=== PATIENT | female | born 1980 | race Caucasian/White ===

== ENCOUNTER → 2017-11-08 15:36 | Outpatient (CLI) | payer OTHER, MEDICAID, SELFPAY ==
--- NOTE | 2017-11-08 | DI.US.S_ITS ---
PROCEDURE: US PELVIC COMPLETE INDICATIONS: Vaginal bleeding TECHNIQUE: Real-time scanning was performed of the pelvic organs, with image documentation. Additional endovaginal scanning was necessary due to incomplete visualization of the adnexal and endometrial structures by transabdominal scanning. COMPARISON: [facility], , PELVIC COMPLETE, 01/05/2012, 8:38. FINDINGS: Transabdominal scanning: Limited scanning through the kidneys shows no hydronephrosis. No pathologic free abdominal or pelvic fluid. Endovaginal scanning: Uterus: Uterus is normal in size at 14.5 x 7.0 8.4 cm. The endometrium not well-visualized and there is a vascular mass present within the endometrial cavity measuring 3.6 x 2.0 x 3.9 cm. Ovaries: Right are not visualized. Left ovary is normal measuring 2.5 x 2.4 x 2.9 cm. IMPRESSION: Vascular endometrial mass present measuring up to 3.9 cm. Underlying neoplastic process cannot be excluded and gynecologic consultation is recommended. If indicated gynecologic protocol MRI could be performed. Dictated by: William BRAVO Interpreted: Jose Eduardo Mares MD on 11/08/2017 at 17:03 Approved by: Jai Alves M.D. on 11/09/2017 at 8:56
== END ==
PROVIDERS: PCP Family Medicine; Visit Provider Family Medicine
DX: N93.9 Abnormal uterine and vaginal bleeding, unspecified (principal); N85.8 Other specified noninflammatory disorders of uterus
CPT/HCPCS: 76830; 76856

== ENCOUNTER 2017-11-26 12:25 | Day surgery (SDC) | payer OTHER, MEDICAID, SELFPAY ==
[2017-11-23 17:06] VITALS: BMI 47.2
[2017-11-26] VITALS (10 sets, daily range): BP systolic 95–151; BP diastolic 49–88; PULSE 82–97; RESP 12–22; TEMP 36–36.6; O2SAT 93–97; BMI 57.1
--- NOTE | 2017-11-26 | PATH_ITS ---
[facility] Accession Number: [id number] . 01 Material submitted: . PART A: RESECTION OF ENDOMETRIAL MASS PART B: ENDOMETRIAL CURRETTAGE . 02 Diagnosis: A. Specimen Designated Endometrial Mass: Tissue fragments consistent with benign adenomyoma, negative for atypia. Fragments of minimally proliferative endometrium with stromal changes suggestive of exogenous hormone effect, negative for atypia. . B. Endometrial Curettings: Blood containing fragments of minimally proliferative endometrium with stromal changes suggestive of exogenous hormone effect and changes of stromal breakdown, negative for atypia. [facility]/12/01/2017 . 02 Electronically signed: . Dimitrios Srivastava MD, Pathologist NPI- [id number] . 01 Gross description: . A. Received in formalin, labeled 1-Resection of endometrial mass, are multiple fragments of palmer-bass rubbery tissue (4.6 x 2.7 x 0.5 cm in aggregate). Entirely submitted in cassettes A1 and A2. B. Received in formalin, labeled 2-Endometrial curettage, are multiple fragments of red-brown tissue admixed with coagulated blood (7.8 x 2.7 x 0.5 cm in aggregate). Entirely submitted in cassettes B1-B4. (JM:[id number]) . /[facility] . 02 Pathologist provided ICD-10: N80.0 . 02 CPT . 742413, [id number] Performed at: 01 [facility] [address], [place], [place] [id number] MD Anil Cooney MD Phone: [phone] Performed at: 02 [facility] [place] [address] [place], [place] [id number] MD Lee Meraz MD Phone: [phone]
[2017-11-26] MEDS: LACTATED RINGERS 1,000 ML 42 ML IV (13:05)
--- NOTE | 2017-11-26 13:19 | PM.PREOP ---
Pre-operative Note Interval Note Pre-op Check: History & Physical Reviewed by Physician and Exam Performed
--- NOTE | 2017-11-26 14:01 | SUR.OPER ---
Lithotomy on padded OR bed, head on pillow, arms secured on padded arm boards at <90 degrees abduction. Legs secured in padded yellow fins stirrups. belt secured at waist. wedge pillow under upper body.
--- NOTE | 2017-11-26 14:27 | PM.OP.1 ---
Operative Date/Time/Diagnoses - Date of procedure: 11/26/17 Time of procedure: 14:27 Pre-op diagnosis: Menorrhagia intracavitary mass on ultrasound Post-op diagnosis: same Procedure & Clinicians Procedure: Hysteroscopy with resection of intracavitary mass Same procedure as scheduled: Yes Indications: Menorrhagia with intracavitary mass on ultrasound Surgeon: Sherice Godinez Click Yes if Unassisted: Yes Anesthesia Type: General Operative Notes Findings: Vascular mass on the posterior wall of the uterus Closure Type: not applicable Specimen(s): other (Resection of mass and endometrial curettage) Estimated Blood Loss (mL): 20 Procedure in detail: The patient was brought to the operating room where she underwent general anesthesia. She was placed in low stirrups She was prepped and draped in usual sterile fashion with pulsatile stockings in place and functional, warming in place. Antibiotics were not indicated. Her bladder was drained with in and out catheter. A single-tooth tenaculum was placed on the anterior lip of the cervix and the uterus dilated to #8 Hegar dilator. The hysteroscope was placed into the uterus with a sorbitol solution running and under constant suction. The resecting loop set at 100 W of cutting was used to resect the mass down to the level of the endometrium. A endometrial curettage was performed. The resected mass and the endometrial curettage was sent to pathology. The patient went to recovery room in good condition counts of instruments and sponges were correct. The sorbitol solution I=O approximately 6000 mL. Complications: none Condition: stable Disposition: same day surgery Plan for aftercare: Home when awake and stable. Further treatment based on biopsy results.
--- NOTE | 2017-11-26 14:44 | SUR.PHASEI ---
ORAL AIRWAY REMOVED UPON ARRIVAL TO PACU.
[2017-11-26] MEDS: ONDANSETRON 4 MG/2 ML INJ IV (14:45)
[2017-11-26] MEDS: KETOROLAC 30 MG/ML VIAL IV (14:46)
== END 2017-11-26 15:35 ==
LOC: OR 12:28
PROVIDERS: PCP Family Medicine; Visit Provider Specialist
PROC: 0UDB8ZZ Extraction of Endometrium, Via Natural or Artificial Opening Endoscopic (ICD-10-PCS; CPT 58558; principal; 2017-11-26 13:30)
DX: N80.0 Endometriosis of uterus (principal); D25.0 Submucous leiomyoma of uterus; E66.01 Morbid (severe) obesity due to excess calories; Z68.43 Body mass index [BMI] 50.0-59.9, adult; F41.9 Anxiety disorder, unspecified
CPT/HCPCS: 58558; J1100; J1885; J2250; J2405; J2704; J3010

== ENCOUNTER → 2017-11-30 16:44 | Outpatient (CLI) | payer OTHER, MEDICAID, SELFPAY ==
[2017-11-30 19:12] LABS: Appearance Urine UA CLOUDY; Bilirubin Urine UA NEGATIVE (NEGATIVE); Color Urine UA YELLOW; Glucose Urine UA NEGATIVE (Normal); Ketones Urine UA TRACE (NEGATIVE); Leukocyte Esterase Urine UA TRACE (NEGATIVE); Nitrite Urine UA Negative (Negative); Occult Blood Urine UA 3+ (Negative); Protein Urine UA 2+ (Negative); Urobilinogen Urine UA 0.2 E.U./dL (0.2); pH Urine UA 5.5 (4.5-8.0)
[2017-11-30 19:31] LABS: Calcium Oxalate Crystals Urine Many; RBC Urine >100/HPF (0-5/HPF); Squamous Epithelial Cell Urine 1-5 /HPF; WBC Urine 5-10/HPF (0-5/HPF)
[2017-11-30 19:32] LABS: Bacteria Urine Occasional (0-1); Culture Indicated Urine Specimen Cultured
== END ==
PROVIDERS: PCP Family Medicine; Visit Provider Specialist
DX: R30.0 Dysuria (principal)
CPT/HCPCS: 81001; 87086

== ENCOUNTER 2018-09-15 06:46 | Day surgery (SDC) | payer OTHER, MEDICAID, SELFPAY ==
[2018-09-06 07:40] VITALS: BMI 56.9
--- NOTE | 2018-09-14 16:34 | PM.PROC.1 ---
Procedures Date/Time Date of procedure: 09/14/18 Time of procedure: 14:45 Nerve Block Time out performed: Yes Location of anesthetic used: Local: Lido 1%; Block: Ropivacaine 0.5% 20 ml Amount of anesthesia used (mL): 20 Nerve blocks: femoral (saphenous nerve block using Adductor Canal approach) Procedure successful: Yes Patient tolerated procedure: well Complications: none Additional comments: Consent signed. Routine monitors and NC O2 placed. IV sedation given: fentanyl 100 mcg and midazolam 2 mg. Left thigh prepped with chloroprep and draped in sterile fashion. Ultrasound guidance used. Skin wheal with 1% Lido. 100mm 22g blunt needle visualized in adductor canal space. Negative aspiration. Negative test dose. Aliquiot injections with negative aspirations to a total volume of 20 ml. Patient tolerated well without complications.
[2018-09-15] VITALS (19 sets, daily range): BP systolic 117–155; BP diastolic 49–94; PULSE 77–91; RESP 12–20; TEMP 36.3–37.3; O2SAT 18–97; BMI 57.2
--- NOTE | 2018-09-15 | PATH_ITS ---
[facility] Accession Number: [id number] . 01 Material submitted: . uterus - UTERUS . 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 Inactive endometrium, negative for atypia. Fallopian tubes unremarkable. [facility]/09/19/2018 . 02 Electronically signed: . Dimitrios Srivastava MD, Pathologist NPI- [id number] . 01 Gross description: . Received in formalin, labeled with the patient's name and uterus is a morecellated uterus weighing 177 grams and measuring 14.5 x 14.5 x 4.0 cm in aggregate. No cervix is identified. The myometrium is sectioned to reveal a trabeculated cut surface without gross lesions. A portion of fallopian tube measuring 6.2 cm in length by 0.6 cm in diameter is attached to a piece of myometrium. A detached fallopian tube is also present measuring 7.3 cm in length by 0.5 cm in diameter. Dowel Pin Man sections are submitted as follows: A1-A2 - possible endometrium; A3-A4 - myometrium; A5 - detached fallopian tube cross-sections and fimbriated end; A6 - attached fallopian tube cross-sections and fimbriated end. (DEBBIE:[id number]) /MRV . 02 Pathologist provided ICD-10: N80.0 . 02 CPT . 488757 Performed at: 01 [facility] [address] [facility], [place], [place] [id number] MD Anil Cooney MD Phone: [phone] Performed at: [address] [facility] [place] [address] , [place], [place] [id number] MD Elidia Dejesus MD Phone: [phone]
[2018-09-15] MEDS: LACTATED RINGERS 1,000 ML 42 ML IV ×2 (07:00→09:10)
--- NOTE | 2018-09-15 07:29 | PM.PREOP ---
Pre-operative Note Interval Note History & Physical reviewed/Exam performed by Physician: Yes Changes to H&P: No
[2018-09-15] MEDS: CEFAZOLIN 2 GM/100 ML FROZ.PIGGY IV (07:50)
--- NOTE | 2018-09-15 08:37 | SUR.OPER ---
Lithotomy on padded OR bed with bed width extention on patients left. [place]shire Pad Positioner under torso and buttocks. Head on foam pad and gel donut, left arm padded and tucked at side, right arm on padded arm board at < 90 degrees. Legs secured in padded yellow fins stirrups.
[2018-09-15] MEDS: BUPIVACAINE 0.5% W/ EPI (PF) VIAL 30 ML INJ (08:50)
[2018-09-15] MEDS: ACETAMINOPHEN IV 1,000 MG/100 ML VIAL 400 MG IV (09:40)
--- NOTE | 2018-09-15 10:23 | P.OP_ITS ---
Operative Date/Time/Diagnoses Date of procedure: 09/15/18 Time of procedure: 10:20 Pre-op diagnosis: Menorrhagia Post-op diagnosis: same Procedure & Clinicians Procedure: Laparoscopic supracervical hysterectomy Same procedure as scheduled: Yes Indications: Menorrhagia Surgeon: Sherice Godinez Feller Operator: Ashley Foreman Click Yes if Unassisted: No Anesthesia Type: Spinal Operative Notes Findings: Normal tubes ovaries and uterus. No scar tissue. No endometriosis. No internal hernias. Normal bowel surface. Closure Type: primary Specimen(s): other (Uterus above the level of the bladder) Applied: catheter (Arevalo) Estimated Blood Loss (mL): 50 Blood products transfused: none Procedure in detail: Patient is brought to the operating room where she underwent general anesthesia and placed in low [facility] stirrups. She was prepped and draped in the usual sterile fashion. A check list was reviewed with the staff in the room prior to beginning of the case. Patient had pulsatile stockings in place and functional. 2 g of Ancef were in prior to beginning of the case.. A Arevalo catheter was placed. A single-tooth tenaculum was placed on the anterior lip of the cervix and the cervix dilated to a #6 Hegar dilator. The uterine manipulator was placed through the cervix into the uterus with the balloon inflated with 3 mL of air. The area of the umbilical incision and the 5 mm right and left lower quadrant incisions were injected with Marcaine. An incision was made with scalpel. The verries needle was placed into the abdomen and confirmed in the appropriate place with withdrawal on a syr joleen and then free flow of fluid down through the needle. The abdomen was insufflated with CO2. The needle was removed and a 5 mm trocar placed without difficulty. There did not appear to be any damage is placement of the trocar. The right and left lower quadrant incisions were made with the scalpel and the trochars placed without damage to internal structures. The PK forceps were used to cauterize along the mesosalpinx followed by the round ligaments on both sides. Sequential bites were taken down the broad ligaments. The uterine arteries were cauterized. An incision was made above the level bladder pushing the bladder away from the cervix. The RICHARD loop was placed around the uterus and the uterus was amputated above the level of the bladder. Bleeding was controlled with the PK forceps. The PK forceps were used to cauterize in the endocervical canal. A supracervical incision was made and an 11 mm port placed. A 15 mm Endo Catch bag was placed in the abdomen. The uterus and tubes were placed in the bag and brought up through the suprapubic port site. The Jun O was placed. The uterus was hand morselized. The abdomen was reinsufflated and adequate hemostasis was noted. The trochars were removed and the CO2 allowed escape from the abdomen. The fascia layer of the suprapubic site was repaired with 0 Polysorb suture. Skin was closed with 4-0 Monocryl suture at the suprapubic site and the other 3 sites. The patient went to recovery room in good condition. Counts of instruments and sponges were correct. Complications: none Condition: stable Disposition: same day surgery Plan for aftercare: Follow-up in 2 weeks unless complications prior to that time
[2018-09-15] MEDS: ONDANSETRON 4 MG/2 ML INJ IV (10:53)
[2018-09-15] MEDS: fentaNYL 100 MCG/2 ML INJ 50 MCG IV ×2 (11:43→11:48)
[2018-09-15] MEDS: HYDROCODONE/ACET 5/325 TABLET 2 TAB PO (12:13)
--- NOTE | 2018-09-15 15:46 | PC.NURSE ---
[id number] PATIENT RECEIVED FROM PACU TO CONTINUE RECOVERY FROM ANESTHESIA PRIOR TO DISCHARGE. PATIENT AXOX3, VSS, SLEEPY BUT EASILY AROUSABLE. DENIES PAIN. BRO IN PLACE DRAINING CLEAR YELLOW URINE. GIBSON PAD IN PLACE WITHOUT DRAINAGE. [address] NOTED WITH BANDAIDS TO BE CDI WITHOUT SIGNS OF BLEEDING NOTED. PATIENT TOLERATED PUDDING AND WATER. DENIES NAUSEA AND VOMITING. UPDATE: WEANED OFF OXYGEN, 92-93% ON ROOM AIR WITHOUT SHORTNESS OF BREATH. ORDER FROM DOCTOR WANG RECEIVED TO DC BRO AND GET PATIENT UP TO AMBULATE. PATIENT WANTS TO DC HOME. BRO DC'D WITHOUT DIFFICULTY, AND PATIENT ABLE TO VOID X 1 PRIOR TO DISCHARGE. PATIENT ABLE TO AMBULATE TO CHAIR AND TO BATHROOM WITHOUT DIFFICULTY. DISCHARGE INSTRUCITONS REVIEWED, PATIENT STATES SHE HAS ALL HER PRESCRIPTIONS PICKED UP AHEAD OF SURGERY. IV DC'D INTACT, ESCORTED OUT VIA WHEELCHAIR TO BE DISCHARGED HOME WITH FAMILY. PATIENT INSTRUCTED TO CALL DR. WANG'S OFFICE TO ENSURE FOLLOW UP APPOINTMENT.
--- NOTE | 2018-09-15 17:51 | PM.DS.1 ---
History of Present Illness Date Patient Seen: 09/15/18 Time Patient Seen: 14:00 Chief complaint: *OPB*[id number] Narrative: Patient underwent a laparoscopic supracervical hysterectomy. Patient desired to go home today. She was able to ambulate without problems. pain was tolerable with pain medicine. She denied any nausea. Discharge Providers Discharge Date: 09/15/18 Primary care physician: Ry Hayes MD Discharge provider: Sherice Godinez MD Summary Discharge Diagnosis: Menorrhagia status post laparoscopic supracervical hysterectomy Hospital Course: Patient underwent a laparoscopic supracervical hysterectomy was able to be discharged the same day. Status at Discharge Cognitive/behavioral status at discharge: oriented Functional status at discharge: independent ambulation Overall status at discharge: patient is progressing back to baseline Time Spent with Patient Less than 30 minutes Exam Vital Signs (past 8 hours): - 09/15/18 10:18 09/15/18 10:23 09/15/18 10:28 Temperature 97.6 F Pulse Rate 91 H 88 89 Respiratory Rate 12 20 16 Blood Pressure 129/68 146/66 H 137/74 Pulse Oximetry 93 18 L 93 09/15/18 10:33 09/15/18 10:34 09/15/18 10:48 Temperature 99.1 F Pulse Rate 84 88 85 Respiratory Rate 14 16 18 Blood Pressure 140/69 137/74 141/80 H Pulse Oximetry 92 93 97 09/15/18 11:04 09/15/18 11:18 09/15/18 11:32 Temperature Pulse Rate 82 80 85 Respiratory Rate 20 20 20 Blood Pressure 128/49 L 137/86 141/83 H Pulse Oximetry 94 94 95 09/15/18 11:45 09/15/18 11:48 09/15/18 12:00 Temperature 98.7 F 98.5 F Pulse Rate 77 86 Respiratory Rate 16 14 Blood Pressure 145/77 H 155/82 H Pulse Oximetry 93 95 09/15/18 12:13 09/15/18 12:25 09/15/18 12:55 Temperature 97.3 F L 98.0 F Pulse Rate 80 78 79 Respiratory Rate 14 20 20 Blood Pressure 146/86 H 133/73 118/52 L Pulse Oximetry 93 95 97 09/15/18 13:16 09/15/18 13:26 09/15/18 14:25 Temperature 97.9 F 97.7 F Pulse Rate 78 86 82 Respiratory Rate 14 18 20 Blood Pressure 129/72 137/94 H Pulse Oximetry 95 90 L 93 Fraction of Inspired Oxygen 28 Oxygen Delivery Method Nasal Cannula Oxygen Flow Rate 0 Narrative Exam Narrative: Abdomen was soft with minimal tenderness. Dressings were clean dry and intact. Minimal vaginal bleeding. Extremities nontender. Discharge Plan Discharge Plan Patient Disposition: Home Discharge Med Rec/Prescriptions Prescriptions: No Action medroxyprogesterone 10 mg tablet 10 mg PO .COMPLEX Qty: 45 RF: 0 metformin 500 mg tablet 500 mg PO BID RF: 0 ferrous sulfate 325 mg (65 mg iron) tablet,delayed release (DR/EC) 325 mg PO BID RF: 0 hydrocodone-acetaminophen 5-325 mg tablet 2 tab PO Q4-6H PRN (Reason: pain) Qty: 30 RF: 0 medroxyprogesterone 10 mg tablet 10 mg PO DAILY Qty: 30 RF: 2 ibuprofen 800 MG tablet 800 mg PO Q8HP PRN (Reason: pain) RF: 0 lisinopril 5 mg tablet 5 mg PO DAILY RF: 0 Follow up/Referrals: Sherice Godinez MD [Physician] - (Call Dr. Godinez's office to schedule your follow up appointment ) Ry Hayes MD [Primary Care Provider] - Discharge Orders: Discharge (Order); Ordered 09/15/18 Ordered By: Sherice Godinez Provider Discharge Instructions Diet: Regular Visit Report/Discharge Packet Instructions: DI for Hysterectomy Stand Alone Forms: Surgery Discharge Discharge Data Primary Care Provider: Ry Hayes Attending Provider: Sherice Godinez Discharges patient from system. Discharge Date/Time: 09/15/18 15:20
== END 2018-09-15 15:20 | disposition home or self-care (01) ==
LOC: OR 06:48 → AC 07:31
PROVIDERS: PCP Family Medicine; Visit Provider Specialist
PROC: 0UT94ZL Resection of Uterus, Supracervical, Percutaneous Endoscopic Approach (ICD-10-PCS; CPT 58541; principal; 2018-09-15 07:45)
DX: N80.0 Endometriosis of uterus (principal); D50.0 Iron deficiency anemia secondary to blood loss (chronic); F41.9 Anxiety disorder, unspecified; F32.9 Major depressive disorder, single episode, unspecified; Z87.891 Personal history of nicotine dependence
CPT/HCPCS: 58541; 94762; J0131; J0330; J0690; J1100; J2405; J2704; J3010

== ENCOUNTER 2018-09-24 18:03 | Emergency (ER) | payer OTHER, MEDICAID, SELFPAY ==
[2018-09-24 18:25] VITALS: BP 146/95; PULSE 105; RESP 16; TEMP 37.3; O2SAT 97; BMI 56.7
--- NOTE | 2018-09-24 20:47 | ED.ABDPAIN ---
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 She states that it feels a little firmer on the area. She has a difficult time seeing it. She called the nurse advice line to told her to come into the emergency department for evaluation Related Data Home Medications Medication Instructions Recorded Confirmed ibuprofen 800 mg PO Q8HP PRN 09/06/18 09/09/18 ferrous sulfate 325 mg (65 mg 325 mg PO BID tab 09/09/18 09/15/18 iron) tablet,delayed release metformin 500 mg tablet 500 mg PO BID 09/09/18 09/15/18 lisinopril 5 mg PO DAILY 09/15/18 09/15/18 Previous Rx's Medication Instructions Recorded hydrocodone 5 mg-acetaminophen 325 2 tab PO Q4-6H PRN #30 tab 09/09/18 mg tablet Allergies Allergy/AdvReac Type Severity Reaction Status Date / Time No Known Drug Allergies Allergy Verified 09/24/18 18:25 Review of Systems Constitutional Denies fever(s) Cardiovascular Denies chest pain and Denies dyspnea Respiratory Denies dyspnea Gastrointestinal Gastrointestinal: Denies abdominal pain, Denies nausea and Denies vomiting Genitourinary Denies dysuria and Denies vaginal discharge Integumentary/Breasts Comments: Potential infection a operative side Hematologic/Lymphatic Denies easy bleeding and Denies easy bruising [facility] Medical History ADHD (Acute) Anxiety (Acute) Bipolar disorder (Acute) Granuloma of skin (Acute) Hearing loss (Acute) History of recurrent ear infection (Acute) Major depressive disorder (Acute) Menorrhagia (Acute) PTSD (post-traumatic stress disorder) (Acute) Status post hysteroscopy (Acute 11/26/17) Social History household members: family Smoking Status: Former smoker Social History household members: family Smoking Status: Former smoker Exam Initial Vital Signs Initial Vital Signs: Vital Signs Temperature 99.1 F 09/24/18 18:25 Pulse Rate 105 H 09/24/18 18:25 Respiratory Rate 16 09/24/18 18:25 Blood Pressure 146/95 H 09/24/18 18:25 Pulse Oximetry 97 09/24/18 18:25 Const General: cooperative, comfortable, well developed, well groomed and No acute distress Nutritional Appearance: obese Orientation: alert and awake Resp Effort & Inspection: normal respiratory effort Skin Other: Patient has a large pannus. Under the pannus in the midline there is a small incision consistent with her surgical incision. The right side of this incision has dehisced small amount. There is some granulation tissue underneath. There is no surrounding erythema. There is no tenderness to palpation. No drainage. Neuro General: alert and awake Extrem General: capillary refill normal Course Vital Signs - 8 hr 09/24/18 18:25 Temperature 99.1 F Pulse Rate 105 H Respiratory Rate 16 Blood Pressure 146/95 H Pulse Oximetry 97 MDM - Abdominal Pain MDM Narrative Medical decision making narrative: There is a small dehiscence of the lower abdominal midline incision. There is no drainage from the area. No surrounding erythema. There is no tenderness to palpation. I feel that this is granulation tissue I have a low suspicion for infection. We did discuss return precautions and follow-up instructions. Will hold on further workup for now. The patient expressed understanding and agreement this plan. Discharge Plan Departure Patient Disposition: Home Clinical Impression: Dehiscence of wound Post-operative complication Qualifiers: Surgical complication system/body Area: [id number] Discharge Date/Time: 09/24/18 21:11 Interventions: ED Discharge Assessment Last Done: 09/24/18 21:11 Instructions: DI for Wound Dehiscence Activity Restrictions/Additional Instructions: On Wednesday morning contact your operative surgeon for a follow-up. Return to the emergency department for any new or worsening symptoms Prescriptions: No Action metformin 500 mg tablet 500 mg PO BID RF: 0 ferrous sulfate 325 mg (65 mg iron) tablet,delayed release (DR/EC) 325 mg PO BID RF: 0 hydrocodone-acetaminophen 5-325 mg tablet 2 tab PO Q4-6H PRN (Reason: pain) Qty: 30 RF: 0 ibuprofen 800 MG tablet 800 mg PO Q8HP PRN (Reason: pain) RF: 0 lisinopril 5 mg tablet 5 mg PO DAILY RF: 0 Referrals: Ry Hayes MD [Primary Care Provider] -
== END 2018-09-24 21:11 | disposition home or self-care (01) ==
PROVIDERS: Emergency Provider Emergency Medicine; PCP Family Medicine
DX: T81.9XXA Unspecified complication of procedure, initial encounter (principal); T81.30XA Disruption of wound, unspecified, initial encounter
CPT/HCPCS: 99282

== ENCOUNTER 2018-11-03 06:06 | Emergency (ER) | payer OTHER, MEDICAID, SELFPAY ==
--- NOTE | 2018-11-03 06:18 | ED.ABDPAIN ---
HPI - Abdominal Pain General Chief Complaint: Abdominal Pain Stated Complaint: Stomach pain Time Seen by Provider: 11/03/18 06:09 Source: patient Mode of arrival: ambulatory Limitations: no limitations History of Present Illness HPI narrative: Patient is a 38 female. Approximately 1 month ago she underwent a hysterectomy due to vaginal bleeding. She did not have her ovaries removed. She states that since then she has had episodes of diarrhea. Initially thought that it was secondary to some antibiotics that she was taking however it has continued. She also has some nausea but no vomiting. No urinary symptoms. Has not had any vaginal bleeding since the surgery. He woke up this morning with left-sided abdominal pain. Took 2 5/325 hydrocodone/acetaminophen tablets that she had left over from her surgery which did not seem to improve any of her symptoms. No recent travel. No recent antibiotic use. No fevers. Related Data Home Medications Medication Instructions Recorded Confirmed ibuprofen 800 mg PO Q8HP PRN 09/06/18 10/06/18 ferrous sulfate 325 mg (65 mg 325 mg PO BID tab 09/09/18 10/06/18 iron) tablet,delayed release metformin 500 mg tablet 500 mg PO BID 09/09/18 10/06/18 lisinopril 5 mg PO DAILY 09/15/18 10/06/18 Previous Rx's Medication Instructions Recorded hydrocodone-acetaminophen 1 tab PO Q4-6H PRN #14 tab 11/03/18 ondansetron 4 mg PO Q6-8H PRN #14 tab 11/03/18 tamsulosin [Flomax] 0.4 mg PO DAILY #10 cap 11/03/18 Allergies Allergy/AdvReac Type Severity Reaction Status Date / Time No Known Drug Allergies Allergy Verified 10/06/18 10:32 Review of Systems Constitutional Denies fever(s) and Denies headache(s) ENT Ears, Nose, Mouth, and Throat: Denies headache(s) Cardiovascular Denies chest pain and Denies dyspnea Respiratory Denies dyspnea Gastrointestinal Gastrointestinal: Reports abdominal pain, Reports diarrhea, Reports nausea and Denies vomiting Genitourinary Denies dysuria and Denies vaginal discharge Musculoskeletal Denies back pain, Denies myalgias and Denies arthralgias Integumentary/Breasts Denies rash Neurologic Denies headache(s) Hematologic/Lymphatic Denies easy bleeding and Denies easy bruising [facility] Medical History ADHD (Acute) Anxiety (Acute) Bipolar disorder (Acute) Granuloma of skin (Acute) Hearing loss (Acute) History of recurrent ear infection (Acute) Major depressive disorder (Acute) Menorrhagia (Acute) PTSD (post-traumatic stress disorder) (Acute) Status post hysteroscopy (Acute 11/26/17) Social History household members: family Smoking Status: Former smoker Social History household members: family Smoking Status: Former smoker Exam Initial Vital Signs Initial Vital Signs: Vital Signs Temperature 97.6 F 11/03/18 06:19 Pulse Rate 88 11/03/18 06:19 Respiratory Rate 20 11/03/18 06:19 Blood Pressure 157/89 H 11/03/18 06:19 Pulse Oximetry 97 11/03/18 06:19 Const General: cooperative, well developed, well groomed and No acute distress Orientation: alert, awake and oriented x3 HENMT Head: normal to inspection and normocephalic Resp Effort & Inspection: normal respiratory effort Cardio Rate: regular rate Rhythm: regular rhythm GI Inspection: non-distended and large pannus Palpation: soft, guarding (Left abdomen) and tender (Left abdomen) Back/Spine/Pelvis Back: No CVA tenderness Skin Lesions: no lesions Rashes: no rashes Neuro General: alert, awake and oriented x3 Speech: speech normal Extrem General: normal to inspection, capillary refill normal and No edema Psych Appearance: grossly normal and well kempt Course Orders Ordered: Discontinued Medications Sodium Chloride (Normal Saline 0.9%) 1,000 mls @ 1,000 mls/hr IV BOLUS ONE Stop: 11/03/18 07:16 Last Infusion: 11/03/18 07:19 Dose: 0 mls/hr Admin: 11/03/18 06:27 Dose: 1,000 mls/hr Ketorolac Tromethamine (Toradol) 30 mg IV NOW ONE Stop: 11/03/18 07:52 Last Admin: 11/03/18 07:56 Dose: 30 mg Vital Signs - 8 hr 11/03/18 06:19 Temperature 97.6 F Pulse Rate 88 Respiratory Rate 20 Blood Pressure 157/89 H Pulse Oximetry 97 MDM - Abdominal Pain Lab Data Attestation: I reviewed the patient's lab results. Result diagrams: 11/03/18 06:20 11/03/18 06:20 Lab Results 11/03/18 11/03/18 11/03/18 Range/Units 06:20 06:20 06:20 WBC 14.6 H (4.5-11.0) X10^3/uL RBC 5.38 H (4.0-5.2) X10^6/uL Hgb 11.1 L (12.0-16.0) g/dL Hct 36.7 (36-46) % MCV 68.3 L (80-100) fL MCH 20.7 L (26-34) PG MCHC 30.3 (30-36) % RDW 23.4 H (11.6-14.8) % Plt Count 357 (150-400) X10^3/uL Neut % (Auto) 62.6 (50-75) % Lymph % (Auto) 29.0 (25-40) % [place] % (Auto) 6.0 (3-14) % Eos % (Auto) 2.0 (2-4) % Baso % (Auto) 0.4 (0-2) % Neut # (Auto) 9200 H (3479-1829) /uL Lymph # (Auto) 4200 (9174-6103) /uL [place] # (Auto) 900 (0-900) /uL Eos # (Auto) 300 (0-450) /uL Baso # (Auto) 100 (0-100) /uL RBC Morphology See below Hypochromasia 1+ H Anisocytosis 2+ H Microcytosis 1+ H [place] Cells 1+ H Sodium 140 (137-145) mmol/L Potassium 4.4 (3.4-5.1) mmol/L Chloride 105 (98-107) mmol/L Carbon Dioxide 23 (22-32) mmol/L BUN 14 (7-17) mg/dL Creatinine 0.80 (0.52-1.04) mg/dL Estimated GFR > 60.0 (>60) mL/min BUN/Creatinine Ratio 17.5 (6-22) Glucose 183 H (70-100) mg/dL Calcium 9.2 (8.4-10.2) mg/dL Total Bilirubin 0.2 (0.2-1.3) mg/dL AST 15 (14-36) IU/L ALT 17 (9-52) IU/L Alkaline Phosphatase 107 (38-126) U/L Total Protein 7.6 (6.3-8.2) g/dL Albumin 4.3 (3.5-5.0) g/dL Globulin 3.3 (1.7-4.1) g/dL Albumin/Globulin Ratio 1.3 (1.0-2.8) Lipase 79 (23-300) U/L Urine RBC (0-5/HPF) Urine WBC (0-5/HPF) Ur Squamous Epith Cells (0-5/HPF) Amorphous Sediment Urine Bacteria (None) Ur Culture Indicated? 11/03/18 Range/Units 08:00 WBC (4.5-11.0) X10^3/uL RBC (4.0-5.2) X10^6/uL Hgb (12.0-16.0) g/dL Hct (36-46) % MCV (80-100) fL MCH (26-34) PG MCHC (30-36) % RDW (11.6-14.8) % Plt Count (150-400) X10^3/uL Neut % (Auto) (50-75) % Lymph % (Auto) (25-40) % [place] % (Auto) (3-14) % Eos % (Auto) (2-4) % Baso % (Auto) (0-2) % Neut # (Auto) (8206-8959) /uL Lymph # (Auto) (0925-4436) /uL [place] # (Auto) (0-900) /uL Eos # (Auto) (0-450) /uL Baso # (Auto) (0-100) /uL RBC Morphology Hypochromasia Anisocytosis Microcytosis [place] Cells Sodium (137-145) mmol/L Potassium (3.4-5.1) mmol/L Chloride (98-107) mmol/L Carbon Dioxide (22-32) mmol/L BUN (7-17) mg/dL Creatinine (0.52-1.04) mg/dL Estimated GFR (>60) mL/min BUN/Creatinine Ratio (6-22) Glucose (70-100) mg/dL Calcium (8.4-10.2) mg/dL Total Bilirubin (0.2-1.3) mg/dL AST (14-36) IU/L ALT (9-52) IU/L Alkaline Phosphatase (38-126) U/L Total Protein (6.3-8.2) g/dL Albumin (3.5-5.0) g/dL Globulin (1.7-4.1) g/dL Albumin/Globulin Ratio (1.0-2.8) Lipase (23-300) U/L Urine RBC 0-1/hpf D (0-5/HPF) Urine WBC 0-1/hpf (0-5/HPF) Ur Squamous Epith Cells 5-10 /hpf H (0-5/HPF) Amorphous Sediment 1+ Urine Bacteria Few (2-10) H (None) Ur Culture Indicated? Cult not indicated Point of care testing: Urine Dip Bedside Urine Glucose Negative Bedside Urine Bilirubin - Negative Bedside Urine Ketone - Negative Urine Specific [place] 1.025 Bedside Urine Occult Blood +/- Bedside Urine pH 5.5 Bedside Urine Protein - Negative Bedside Urine Urobilinogen - Negative Bedside Urine Nitrite - Negative Bedside Urine Leukocytes - Negative Esterase MDM Narrative Medical decision making narrative: Care turned over to the provider at change of shift to follow up on CT results. Discharge Plan Departure Patient Disposition: Home Clinical Impression: Kidney calculi Discharge Date/Time: 11/03/18 09:30 Interventions: ED Discharge Assessment Last Done: 11/03/18 09:30 Instructions: DI for Kidney Stones Activity Restrictions/Additional Instructions: Your CT scan shows that you are passing a couple of kidney stones. One is small and should pass easily; the other 1 is larger, and may have more trouble passing. As such, your case has been discussed with the urologist, Dr. Varela. He would like to see you in clinic next week to be sure that your stone is making progress as it should. You may take the pain and nausea medicine, as needed, and be sure to drink plenty of fluid. Prescriptions: New hydrocodone-acetaminophen 5-325 mg tablet 1 tab PO Q4-6H PRN (Reason: pain) Qty: 14 RF: 0 tamsulosin [Flomax] 0.4 mg capsule 0.4 mg PO DAILY Qty: 10 RF: 0 ondansetron 4 mg tablet,disintegrating 4 mg PO Q6-8H PRN (Reason: nausea and vomiting) Qty: 14 RF: 0 No Action metformin 500 mg tablet 500 mg PO BID RF: 0 ferrous sulfate 325 mg (65 mg iron) tablet,delayed release (DR/EC) 325 mg PO BID RF: 0 ibuprofen 800 MG tablet 800 mg PO Q8HP PRN (Reason: pain) RF: 0 lisinopril 5 mg tablet 5 mg PO DAILY RF: 0 Referrals: [facility] [Provider Group] Ry Hayes MD [Primary Care Provider] -
[2018-11-03 06:19] VITALS: BP 157/89; PULSE 88; RESP 20; TEMP 36.4; O2SAT 97; BMI 56.0
[2018-11-03] MEDS: SODIUM CHLORIDE 0.9% 1,000 ML 1000 ML IV (06:27)
[2018-11-03 06:32] LABS: Basophils Absolute Auto 100 /uL (0-100); Basophils Percent Auto 0.4 % (0-2); Eosinophils Absolute Auto 300 /uL (0-450); Hematocrit 36.7 % (36-46); Hemoglobin 11.1 g/dL (12.0-16.0); Lymphocytes Absolute Auto 4200 /uL (1100-4500); Mean Corpuscular HGB Conc 30.3 % (30-36); Mean Corpuscular Hemoglobin 20.7 PG (26-34); Mean Corpuscular Volume 68.3 fL (80-100); Monocytes Absolute Auto 900 /uL (0-900); Neutrophils Absolute Auto 9200 /uL (1500-7000); Neutrophils Percent Auto 62.6 % (50-75); Platelet Count 357 X10^3/uL (150-400); Red Blood Cell Count 5.38 X10^6/uL (4.0-5.2); Red Cell Distribution Width 23.4 % (11.6-14.8); White Blood Cell Count 14.6 X10^3/uL (4.5-11.0)
[2018-11-03 06:33] LABS: Add Manual Diff / Slide Review SLIDE REVIEW
[2018-11-03 06:40] LABS: Alanine Aminotransferase 17 IU/L (9-52); Albumin 4.3 g/dL (3.5-5.0); Albumin Globulin Ratio 1.3 (1.0-2.8); Alkaline Phosphatase 107 U/L (38-126); Aspartate Aminotransferase 15 IU/L (14-36); BUN Creatinine Ratio 17.5 (6-22); Bilirubin Total 0.2 mg/dL (0.2-1.3); Blood Urea Nitrogen 14 mg/dL (7-17); Calcium 9.2 mg/dL (8.4-10.2); Carbon Dioxide 23 mmol/L (22-32); Chloride 105 mmol/L (98-107); Estimated Glomerular Filt Rate > 60.0 mL/min (>60); Globulin 3.3 g/dL (1.7-4.1); Glucose 183 mg/dL (70-100); HEMOLYSIS < 15 (0-50); Potassium 4.4 mmol/L (3.4-5.1); Sodium 140 mmol/L (137-145); Total Protein 7.6 g/dL (6.3-8.2)
[2018-11-03 06:49] LABS: Lipase 79 U/L (23-300)
[2018-11-03 07:21] VITALS: BP 124/64; PULSE 86; RESP 16; O2SAT 96
[2018-11-03 07:22] LABS: Anisocytosis 2+; Hypochromasia 1+; Microcytosis 1+
[2018-11-03 07:23] LABS: Burr Cells 1+
--- NOTE | 2018-11-03 07:41 | DI.CT.S_ITS ---
PROCEDURE: CT ABDOMEN PELVIS W CON INDICATIONS: Left-sided abdominal pain TECHNIQUE: After the administration of intravenous contrast, 5 mm thick sections acquired from the diaphragm to the symphysis. 5 mm coronal and sagittal reformats were acquired. For radiation dose reduction, the following was used: automated exposure control, adjustment of mA and/or kV according to patient size. COMPARISON: [facility], CT, IVP (ABD & PEL WWO CONTRAST), 06/21/2013, 9:53. FINDINGS: Image quality: Excellent. ABDOMEN: Lung bases: Lung bases are clear. Heart size is normal. Solid organs: Liver is normal in size and enhancement. Gallbladder appears normal. Biliary system is non dilated. Pancreas enhances normally. Spleen is normal in size and enhancement. No adrenal nodules. Kidneys demonstrate normal size and asymmetric enhancement, slightly reduced on the left, without right-sided hydronephrosis but with left-sided mild hydronephrosis and proximal renal pelvis dilatation secondary to 2 adjacent calculi at the ureteropelvic junction on the left the largest of which measures 9 mm and the smallest of which measures 3 mm. More inferiorly no distal ureteral calculus is found but there are what appear to be pelvic phleboliths near the expected course of the ureters bilaterally, left greater than right.. Peritoneum and bowel: Bowel loops demonstrate normal wall thickness and caliber. No free fluid or air. Nodes and vessels: No retroperitoneal or mesenteric adenopathy by size criteria. Aorta and inferior vena cava are normal in size. Miscellaneous: No ventral hernias. PELVIS: Genitourinary: Bladder wall thickness is normal. Miscellaneous: No inguinal hernias or adenopathy. The distal ureteral region pelvic phleboliths cannot be clearly differentiated from the course of the ureters and yet no ureteral dilatation above the level of these presumed phleboliths is seen. Bones: No suspicious bony lesions. No vertebral body compression fractures. IMPRESSION: Mild left-sided hydronephrosis and dilatation of the renal pelvis due to an impacted 9 mm calculus at the ureteropelvic junction with immediate adjacent 3 mm calculus at that site. A stone of this large size generally will not pass without urologic intervention. The degree of obstruction is significant given the reactive reduction of renal cortical enhancement on the left. As discussed above along the expected course of the ureter multiple small pelvic calcifications are present presumably representing phleboliths given the absence of ureteral distention above. Either distal ureter, however, may contain a small nonobstructive calculus in this clinical circumstance. The findings from this study were initially provided to the emergency room staff after hours and the preliminary report findings are concordant with this final report. Dictated by: Jai Alves M.D. on 11/03/2018 at 8:48 Approved by: Jai Alves M.D. on 11/03/2018 at 8:52
[2018-11-03] MEDS: KETOROLAC 60 MG/2 ML VIAL 30 MG IV (07:56)
[2018-11-03 08:32] LABS: Amorphous Sediment Urine 1+; Bacteria Urine Few (2-10); Culture Indicated Urine Cult Not Indicated; RBC Urine 0-1/HPF (0-5/HPF); Squamous Epithelial Cell Urine 5-10 /HPF (0-5/HPF); WBC Urine 0-1/HPF (0-5/HPF)
[2018-11-03 09:30] VITALS: BP 130/70; PULSE 86; RESP 18; O2SAT 97
== END 2018-11-03 09:30 | disposition home or self-care (01) ==
PROVIDERS: Emergency Medicine; Emergency Provider Emergency Medicine; PCP Family Medicine
DX: N20.0 Calculus of kidney (principal); R19.7 Diarrhea, unspecified
CPT/HCPCS: 36591; 74177; 80053; 81003; 81015; 83690; 85025; 96361; 96374; 99283; 99284; J1885; Q9967

== ENCOUNTER → 2019-01-11 09:54 | Outpatient (CLI) | payer OTHER, MEDICAID, SELFPAY ==
--- NOTE | 2019-01-11 | DI.US.S_ITS ---
PROCEDURE: US RENAL COMPLETE INDICATIONS: KIDNEY STONES TECHNIQUE: Real-time scanning was performed of the kidneys and bladder, with image documentation. COMPARISON: [facility], CT, CT ABDOMEN PELVIS W CON, 11/03/2018, 7:23. FINDINGS: Kidneys: Kidneys are normal in size. Right kidney measures 14.1 cm long; left kidney measures 13.5 cm long. Right renal cortical thickness is 1.1 cm; left renal cortical thickness is 1.5 cm. Renal cortical echotexture is normal. No hydronephrosis. 3.5 mm nonobstructing inferior pole left renal calcification Bladder: Pre-void bladder volume is 72 mL. Post-void residual is 2.0 mL. Pre-void images demonstrate no intraluminal masses or stones. On pre-void images, neither ureteral jets are noted with color Doppler interrogation. (Of note, ureteral jets may not be detectable in up to 25% of cases due to insufficient differences in specific gravity between ureteral and bladder urine). Bladder wall is prominent at 6.5 mm which may be related to decompressed state. Miscellaneous: No free pelvic fluid. IMPRESSION: 1. 3.5 mm nonobstructing left renal stone redemonstrated. 2. Prominence of the urinary bladder wall which may be related to decompression. Recommend clinical correlation. Dictated by: William NESSA Interpreted: Iza Hall MD on 01/11/2019 at 10:45 Approved by: Iza Hall MD, PhD on 01/11/2019 at 14:45
== END ==
PROVIDERS: PCP Family Medicine; Visit Provider Urology
DX: N20.0 Calculus of kidney (principal)
CPT/HCPCS: 76770

== ENCOUNTER → 2020-07-17 12:27 | Outpatient (CLI) | payer OTHER, MEDICAID, SELFPAY ==
--- NOTE | 2020-07-17 | DI.US.S_ITS ---
PROCEDURE: US RENAL COMPLETE INDICATIONS: KIDNEY STONES TECHNIQUE: Real-time scanning was performed of the kidneys, with image documentation. COMPARISON: [facility], , US RENAL COMPLETE, 01/11/2019, 10:08. FINDINGS: Kidneys: Kidneys are normal in size. Right kidney measures 13.8 cm long; left kidney measures 13 cm long. Right renal cortical thickness is 1 cm; left renal cortical thickness is 1.9 cm. Renal cortical echotexture is normal. No hydronephrosis. No suspicious solid mass lesions. There is a 4.6 mm nonobstructing stone within the inferior collecting system of the right kidney. Miscellaneous: No free pelvic fluid. IMPRESSION: 4.6 mm nonobstructing stone seen inferiorly on the right. No hydronephrosis is detected. Dictated by: Gianni Rodriguez M.D. on 07/17/2020 at 13:08 Approved by: Gianni Rodriguez M.D. on 07/17/2020 at 13:09
== END ==
PROVIDERS: PCP Family Medicine; Referring Provider Family Medicine; Visit Provider Family Medicine
DX: N20.0 Calculus of kidney (principal)
CPT/HCPCS: 76770

== ENCOUNTER → 2020-09-06 11:12 | Outpatient (CLI) | payer OTHER, MEDICAID, SELFPAY ==
[2020-09-06] MEDS: COVID-19 VACC #1, MRNA(MOD) 100 MCG/0.5 ML VIAL IM (11:17)
== END ==
PROVIDERS: PCP Family Medicine; Visit Provider Internal Medicine
DX: Z23 Encounter for immunization (principal); F33.2 Major depressive disorder, recurrent severe without psychotic features; F41.1 Generalized anxiety disorder; F12.10 Cannabis abuse, uncomplicated
CPT/HCPCS: 0011A; 91301; 99214

== ENCOUNTER → 2020-10-04 14:17 | Outpatient (CLI) | payer OTHER, MEDICAID, SELFPAY ==
[2020-10-04] MEDS: COVID-19 VACC #2, MRNA(MOD) 100 MCG/0.5 ML VIAL IM (14:34)
== END ==
PROVIDERS: PCP Family Medicine; Visit Provider Internal Medicine
DX: Z23 Encounter for immunization (principal)
CPT/HCPCS: 0012A; 91301

== ENCOUNTER 2020-12-01 18:26 | Emergency (ER) | payer OTHER, MEDICAID, SELFPAY ==
[2020-12-01 18:38] VITALS: BP 114/60; PULSE 99; RESP 20; TEMP 36.4; O2SAT 94
--- NOTE | 2020-12-01 18:41 | DI.RAD.S_ITS ---
PROCEDURE: XR CHEST 2V INDICATIONS: suspected sepsis TECHNIQUE: 2 views of the chest were acquired. COMPARISON: [facility], CR, CHEST 2VW, 11/20/2009, 15:42. FINDINGS: Surgical changes and devices: None. Lungs and pleura: Scattered subsegmental scarring and/or atelectasis. No acute consolidation. No pleural effusions or pneumothorax. Mediastinum: Mediastinal contours are normal. Heart size is normal. Bones and chest wall: No suspicious bony abnormalities. Soft tissues appear unremarkable. IMPRESSION: No acute disease. Dictated by: Jerrod Recio M.D. on 12/01/2020 at 18:57 Approved by: Jerrod Recio M.D. on 12/01/2020 at 18:58
[2020-12-01] MEDS: SODIUM CHLORIDE 0.9% 1,000 ML 1000 ML IV (19:08)
[2020-12-01 19:20] LABS: Add Manual Diff / Slide Review NO; Basophils Absolute Auto 0 /uL (0-100); Basophils Percent Auto 0.3 % (0-2); Eosinophils Absolute Auto 0 /uL (0-450); Hematocrit 41.3 % (36-46); Hemoglobin 13.6 g/dL (12.0-16.0); Lymphocytes Absolute Auto 800 /uL (1100-4500); Lymphocytes Percent Auto 6.6 % (25-40); Mean Corpuscular HGB Conc 32.9 % (30-36); Mean Corpuscular Hemoglobin 27.7 PG (26-34); Mean Corpuscular Volume 84.2 fL (80-100); Monocytes Absolute Auto 1000 /uL (0-900); Monocytes Percent Auto 7.9 % (3-14); Neutrophils Absolute Auto 10800 /uL (1500-7000); Neutrophils Percent Auto 85.2 % (50-75); Platelet Count 237 X10^3/uL (150-400); Red Blood Cell Count 4.91 X10^6/uL (4.0-5.2); Red Cell Distribution Width 15.5 % (11.6-14.8); White Blood Cell Count 12.7 X10^3/uL (4.5-11.0)
[2020-12-01 19:24] LABS: Lactate (Lactic Acid) 1.4 mmol/L (0.7-2.1)
[2020-12-01 19:25] LABS: Alanine Aminotransferase 17 IU/L (<35); Albumin 4.1 g/dL (3.5-5.0); Albumin Globulin Ratio 1.3 (1.0-2.8); Alkaline Phosphatase 79 U/L (38-126); Aspartate Aminotransferase 23 IU/L (14-36); BUN Creatinine Ratio 17.6 (6-22); Bilirubin Total 0.3 mg/dL (0.2-1.3); Blood Urea Nitrogen 13 mg/dL (7-17); Calcium 8.8 mg/dL (8.4-10.2); Carbon Dioxide 22 mmol/L (22-32); Chloride 104 mmol/L (98-107); Estimated Glomerular Filt Rate > 60.0 mL/min (>60); Globulin 3.2 g/dL (1.7-4.1); Glucose 128 mg/dL (70-100); HEMOLYSIS < 15 (0-50); Lipase 70 U/L (23-300); Potassium 3.9 mmol/L (3.4-5.1); Sodium 135 mmol/L (137-145); Total Protein 7.3 g/dL (6.3-8.2)
[2020-12-01 19:42] LABS: Procalcitonin 0.13 ng/mL (<0.5)
--- NOTE | 2020-12-01 19:54 | ED_ITS ---
HPI - General Adult General Chief complaint: Fever Stated complaint: Fever,Chills HX Kidney Stone Time Seen by Provider: 12/01/20 19:50 Source: patient Mode of arrival: Ambulatory History of Present Illness HPI narrative: Patient is a 40-year-old female who states she was recently diagnosed with kidney stones who is here for evaluation of fevers and chills and nausea and dysuria. She states she wanted to make sure that her symptoms were not related to the stone and that she now had infection associated with it. Related Data Home Medications Medication Instructions Recorded Confirmed ibuprofen 800 mg tablet 800 mg PO Q8HP PRN 09/06/18 11/22/20 metformin 500 mg tablet 500 mg PO BID 09/09/18 11/22/20 fluoxetine 20 mg capsule 60 mg PO DAILY cap 04/25/20 11/22/20 lisinopril 5 mg tablet 10 mg PO DAILY tab 04/29/20 11/22/20 dicyclomine 10 mg capsule 10 mg PO TID 09/13/20 11/22/20 Allergies Allergy/AdvReac Type Severity Reaction Status Date / Time No Known Drug Allergies Allergy Verified 11/22/20 14:52 Review of Systems Constitutional Constitutional: Reports fever(s) Respiratory Respiratory: Reports system reviewed and no additional complaints, except as documented Gastrointestinal Gastrointestinal: Reports abdominal pain and Reports nausea Genitourinary Genitourinary: Reports dysuria Genitourinary: Reports dysuria Integumentary/Breasts Skin/Breast: Reports system reviewed and no additional complaints, except as documented Neurologic Neurologic: Reports system reviewed and no additional complaints, except as documented Hematologic/Lymphatic On Anticoagulants: No Allergic/Immunologic Allergic/Immunologic: Reports system reviewed and no additional complaints, except as documented Patient History Medical History ADHD Anxiety Bipolar disorder Granuloma of skin Hearing loss History of recurrent ear infection Major depressive disorder Menorrhagia PTSD (post-traumatic stress disorder) Status post hysteroscopy (11/26/17) Social History household members: family Smoking Status: Former smoker Smoking Status: Former smoker alcohol intake frequency: holidays/special occasions only Substance Use Type: does not use Exam Initial Vital Signs Initial Vital Signs: Vital Signs Temperature 97.5 F L 12/01/20 18:38 Pulse Rate 99 H 12/01/20 18:38 Respiratory Rate 20 12/01/20 18:38 Blood Pressure 114/60 12/01/20 18:38 Pulse Oximetry 94 12/01/20 18:38 Const General: cooperative and healthy appearing [facility] Head: normal to inspection and normocephalic Resp Effort & Inspection: normal respiratory effort Cardio Rate: regular rate GI Inspection: normal to inspection Skin General: no rashes or lesions noted Neuro General: patient alert and patient awake Extrem General: capillary refill normal Psych Appearance: grossly normal Course Orders Ordered: Discontinued Medications Sodium Chloride (Normal Saline 0.9%) 1,000 mls @ 1,000 mls/hr IV BOLUS ONE Stop: 12/01/20 19:40 Last Infusion: 12/01/20 20:11 Dose: 0 mls/hr Documented by: Admin: 12/01/20 19:08 Dose: 1,000 mls/hr Documented by: ALFREDO Vital Signs Vital signs: Vital Signs - 8 hr 12/01/20 18:38 Temperature 97.5 F L Pulse Rate 99 H Respiratory Rate 20 Blood Pressure 114/60 Pulse Oximetry 94 Medical Decision Making Lab Data Lab results reviewed: Yes I reviewed the patient's lab results. Result diagrams: 12/01/20 19:00 12/01/20 19:00 Labs: Lab Results 12/01/20 12/01/20 12/01/20 Range/Units 19:00 19:00 19:00 WBC 12.7 H (4.5-11.0) X10^3/uL RBC 4.91 (4.0-5.2) X10^6/uL Hgb 13.6 (12.0-16.0) g/dL Hct 41.3 (36-46) % MCV 84.2 (80-100) fL MCH 27.7 (26-34) PG MCHC 32.9 (30-36) % RDW 15.5 H (11.6-14.8) % Plt Count 237 (150-400) X10^3/uL Neut % (Auto) 85.2 H (50-75) % Lymph % (Auto) 6.6 L (25-40) % [place] % (Auto) 7.9 (3-14) % Eos % (Auto) 0.0 L (2-4) % Baso % (Auto) 0.3 (0-2) % Neut # (Auto) 69963 H (8457-3795) /uL Lymph # (Auto) 800 L (8442-4105) /uL [place] # (Auto) 1000 H (0-900) /uL Eos # (Auto) 0 (0-450) /uL Baso # (Auto) 0 (0-100) /uL Sodium 135 L (137-145) mmol/L Potassium 3.9 (3.4-5.1) mmol/L Chloride 104 (98-107) mmol/L Carbon Dioxide 22 (22-32) mmol/L BUN 13 (7-17) mg/dL Creatinine 0.74 (0.52-1.04) mg/dL Estimated GFR > 60.0 (>60) mL/min BUN/Creatinine Ratio 17.6 (6-22) Glucose 128 H (70-100) mg/dL Lactate 1.4 (0.7-2.1) mmol/L Calcium 8.8 (8.4-10.2) mg/dL Total Bilirubin 0.3 (0.2-1.3) mg/dL AST 23 (14-36) IU/L ALT 17 (<35) IU/L Alkaline Phosphatase 79 (38-126) U/L Total Protein 7.3 (6.3-8.2) g/dL Albumin 4.1 (3.5-5.0) g/dL Globulin 3.2 (1.7-4.1) g/dL Albumin/Globulin Ratio 1.3 (1.0-2.8) Lipase 70 (23-300) U/L Procalcitonin 0.13 (<0.5) ng/mL Urine RBC (0-5/HPF) Urine WBC (0-5/HPF) Ur Squamous Epith Cells (0-5/HPF) Amorphous Sediment Urine Bacteria (None) Urine Mucus (Negative) Ur Culture Indicated? 12/01/20 Range/Units 20:14 WBC (4.5-11.0) X10^3/uL RBC (4.0-5.2) X10^6/uL Hgb (12.0-16.0) g/dL Hct (36-46) % MCV (80-100) fL MCH (26-34) PG MCHC (30-36) % RDW (11.6-14.8) % Plt Count (150-400) X10^3/uL Neut % (Auto) (50-75) % Lymph % (Auto) (25-40) % [place] % (Auto) (3-14) % Eos % (Auto) (2-4) % Baso % (Auto) (0-2) % Neut # (Auto) (9467-5121) /uL Lymph # (Auto) (0080-0302) /uL [place] # (Auto) (0-900) /uL Eos # (Auto) (0-450) /uL Baso # (Auto) (0-100) /uL Sodium (137-145) mmol/L Potassium (3.4-5.1) mmol/L Chloride (98-107) mmol/L Carbon Dioxide (22-32) mmol/L BUN (7-17) mg/dL Creatinine (0.52-1.04) mg/dL Estimated GFR (>60) mL/min BUN/Creatinine Ratio (6-22) Glucose (70-100) mg/dL Lactate (0.7-2.1) mmol/L Calcium (8.4-10.2) mg/dL Total Bilirubin (0.2-1.3) mg/dL AST (14-36) IU/L ALT (<35) IU/L Alkaline Phosphatase (38-126) U/L Total Protein (6.3-8.2) g/dL Albumin (3.5-5.0) g/dL Globulin (1.7-4.1) g/dL Albumin/Globulin Ratio (1.0-2.8) Lipase (23-300) U/L Procalcitonin (<0.5) ng/mL Urine RBC None seen (0-5/HPF) Urine WBC 0-1/hpf (0-5/HPF) Ur Squamous Epith Cells 5-10 /hpf H (0-5/HPF) Amorphous Sediment 1+ Urine Bacteria Occasional (0-1) (None) Urine Mucus 1+ H (Negative) Ur Culture Indicated? Cult not indicated Point of Care Testing Test Results Negative Urine Dip Bedside Urine Glucose Negative Bedside Urine Bilirubin + 1 Bedside Urine Ketone - Negative Urine Specific [place] 1.020 Bedside Urine Occult Blood - Negative Bedside Urine pH 6.0 Bedside Urine Protein + 30 Bedside Urine Urobilinogen - Negative Bedside Urine Nitrite - Negative Bedside Urine Leukocytes - Negative Esterase Point of care testing: Point of Care Testing Test Results Negative Urine Dip Bedside Urine Glucose Negative Bedside Urine Bilirubin + 1 Bedside Urine Ketone - Negative Urine Specific [place] 1.020 Bedside Urine Occult Blood - Negative Bedside Urine pH 6.0 Bedside Urine Protein + 30 Bedside Urine Urobilinogen - Negative Bedside Urine Nitrite - Negative Bedside Urine Leukocytes - Negative Esterase Imaging Data Chest x-ray: Radiologist's Impression: [address] [id number] ReportSigned Patient: Galina Murillo MMR#: [id number]: [id number]:[id number]/Sex: 40 / FDate of Service: 12/01/20Loc: EDAccession Number: [id number] Procedure: XR chest 2V Ordering Provider: Rosendo Kuo D.O. PROCEDURE: XR CHEST 2V INDICATIONS: suspected sepsis TECHNIQUE: 2 views of the chest were acquired. COMPARISON: [facility], , CHEST 2VW, 11/20/2009, 15:42. FINDINGS: Surgical changes and devices: None. Lungs and pleura: Scattered subsegmental scarring and/or atelectasis. No acute consolidation. No pleural effusions or pneumothorax. Mediastinum: Mediastinal contours are normal. Heart size is normal. Bones and chest wall: No suspicious bony abnormalities. Soft tissues appear unremarkable. IMPRESSION: No acute disease. Dictated by: Jerrod Recio M.D. on 12/01/2020 at 18:57 Approved by: Jerrod Recio M.D. on 12/01/2020 at 18:58 ECG Data Interpretation: Sinus rhythm Ventricular rate 93 Normal axis Normal QRS Normal QTC No ST T wave changes MDM Narrative Medical decision making narrative: Patient is nontoxic appearing. Her urinalysis shows no signs of an infection. Chest x-ray shows no signs of pneumonia. She is afebrile here in the emergency department. I feel that we can hold on further workup for now. She was given strict return precautions and follow-up instructions. She expressed understanding and agreement. Discharge Plan Departure Patient Disposition: Home Clinical Impression: Chills Activity Restrictions/Additional Instructions: your workup here in the emergency department does not point towards a specific infection. Does not appear to be urinary tract infection or a lung infection. there is no indication currently for any antibiotics. I recommend you take Tylenol or ibuprofen for any fevers or chills. Please return to the emergency department for any new or worsening symptoms Prescriptions: No Action fluoxetine 20 mg capsule 60 mg PO DAILY RF: 0 dicyclomine 10 mg capsule 10 mg PO TID RF: 0 metformin 500 mg tablet 500 mg PO BID RF: 0 ibuprofen 800 MG tablet 800 mg PO Q8HP PRN (Reason: pain) RF: 0 lisinopril 5 mg tablet 10 mg PO DAILY RF: 0 Referrals: Ry Hayes MD [Primary Care Provider] -
[2020-12-01 20:16] LABS: RBC Urine None Seen (0-5/HPF)
[2020-12-01 20:24] LABS: Squamous Epithelial Cell Urine 5-10 /HPF (0-5/HPF); WBC Urine 0-1/HPF (0-5/HPF)
[2020-12-01 20:25] LABS: Amorphous Sediment Urine 1+; Bacteria Urine Occasional (0-1); Culture Indicated Urine Cult Not Indicated; Mucus Urine 1+ (Negative)
== END 2020-12-01 22:05 | disposition home or self-care (01) ==
PROVIDERS: Emergency Provider Emergency Medicine; PCP Family Medicine
DX: R50.9 Fever, unspecified (principal); R11.0 Nausea; R30.0 Dysuria; Z87.442 Personal history of urinary calculi
CPT/HCPCS: 36415; 71046; 80053; 81003; 81015; 81025; 83605; 83690; 84145; 85025; 87040; 93005; 96360; 99284

== ENCOUNTER → 2020-12-19 09:11 | Outpatient (CLI) | payer OTHER, MEDICAID, SELFPAY | PROVIDERS: PCP Family Medicine; Referring Provider Family Medicine; Visit Provider Family Medicine | DX: R20.2 Paresthesia of skin (principal) | CPT/HCPCS: 95886; 95909 ==

== ENCOUNTER → 2020-12-24 15:45 | Outpatient (CLI) | payer OTHER, MEDICAID, SELFPAY ==
--- NOTE | 2020-12-24 | DI.RAD.S_ITS ---
PROCEDURE: XR LUMBAR SPINE 2-3V INDICATIONS: low back pain TECHNIQUE: 3 views of the lumbar spine were acquired. COMPARISON: None. FINDINGS: Bones: 5 [id number] vertebrae are present. There is normal bony alignment. No vertebral body compression fractures. No suspicious bony lesions. Soft tissues: Overlying bowel gas pattern is normal. No suspicious soft tissue calcifications. IMPRESSION: Minimal degenerative disc disease is seen, best visualized at L4-5 and L5-S1. Progressively more prominent facet osteoarthritis is present from L3-S1. Spinal and foraminal stenosis at L4-5 and L5-S1 may be presen as result . Dictated by: Jai Alves M.D. on 12/24/2020 at 16:48 Approved by: Jai Alves M.D. on 12/24/2020 at 16:50
== END ==
PROVIDERS: PCP Family Medicine; Referring Provider Family Medicine; Visit Provider Family Medicine
DX: M54.5 Low back pain (principal); M47.816 Spondylosis without myelopathy or radiculopathy, lumbar region; M47.817 Spondylosis without myelopathy or radiculopathy, lumbosacral region
CPT/HCPCS: 72100

== ENCOUNTER → 2021-12-29 14:28 | Outpatient (CLI) | payer OTHER, MEDICAID, SELFPAY ==
--- NOTE | 2021-12-29 | DI.RAD.S_ITS ---
PROCEDURE: XR HIP W PEL IF DONE LT 2V INDICATIONS: LEFT HIP PAIN TECHNIQUE: AP pelvis with lateral view(s) of the left hip(s). COMPARISON: CT, CT ABDOMEN PELVIS W CON, 11/03/2018, 7:23. FINDINGS: Bones: No fractures or dislocations. Pelvic ring appears intact. No suspicious bony lesions. Soft tissues: The visualized bowel gas pattern is normal. No suspicious soft tissue calcifications. IMPRESSION: No definite radiographic abnormality. If pain persists with conservative management, consider cross sectional imaging such as CT or MRI for further assessment. Dictated by: William Martinez [facility] Interpreted: Mitesh Drummond MD on 12/29/2021 at 15:29 Transcribed by: KELLEN on 12/29/2021 at 15:30 Approved by: Mitesh Drummond M.D. on 12/29/2021 at 16:53
== END ==
PROVIDERS: PCP Family Medicine; Referring Provider Family Medicine; Visit Provider Family Medicine
DX: M25.552 Pain in left hip (principal)
CPT/HCPCS: 73502

== ENCOUNTER 2022-08-20 06:46 | Day surgery (SDC) | payer OTHER, MEDICAID, SELFPAY ==
[2022-08-20 06:59] VITALS: BMI 45.7
[2022-08-20 07:05] VITALS: BP 123/77; PULSE 65; RESP 20; TEMP 36.9; O2SAT 96
[2022-08-20] MEDS: LACTATED RINGERS 1,000 ML 42 ML IV (07:13)
--- NOTE | 2022-08-20 07:54 | P.HP_ITS ---
History of Present Illness History of Present Illness Date Patient Seen: 08/20/22 Time Patient Seen: 07:54 Chief complaint: [facility] [place] Narrative: Gailna is here for her colonoscopy. See office note from June for details. She has not had any more rectal bleeding. Patient History Medical History ADHD Anxiety Bipolar disorder Granuloma of skin Hearing loss History of recurrent ear infection Major depressive disorder Menorrhagia Prolapse of vaginal wall PTSD (post-traumatic stress disorder) Status post hysteroscopy (11/26/17) Family & Social History Social History: household members family Tobacco & Substance use: Tobacco type smokeless tobacco Smoking Status Never smoker alcohol intake former alcohol intake frequency holiday/special occasion Substance Use Type marijuana Meds Home Medications and Allergies Home Medications Medication Instructions Recorded Confirmed Type omeprazole 20 mg capsule,delayed 20 mg PO DAILY 06/29/22 08/20/22 History release fluvoxamine 100 mg tablet 100 mg PO BID Anxiety #60 tabs 07/17/22 08/20/22 Rx trazodone 50 mg tablet 100 mg PO BEDTIME Insomnia #60 tabs 07/20/22 08/20/22 Rx Allergies Allergy/AdvReac Type Severity Reaction Status Date / Time No Known Drug Allergies Allergy Verified 08/20/22 06:57 Exam Vital Signs (past 8 hours): - 08/20/22 07:05 Temperature 98.4 F Pulse Rate 65 Respiratory Rate 20 Blood Pressure 123/77 Pulse Oximetry 96 Oxygen Delivery Method Room Air Oxygen Delivery Method Room Air Narrative Exam Narrative: Obese Tearful Assessment & Plan Assessment and plan (1) Rectal bleeding: Status: Acute Plan Reviewed the risks and benefits of colonoscopy and she would like to proceed. Time Spent With Patient Critical Care time: I spent a total of [] minutes of critical care time on this patient's care today; this time is exclusive of procedural time.
[2022-08-20 08:12] VITALS: BP 131/81; PULSE 69; RESP 28; TEMP 37.2; O2SAT 96
--- NOTE | 2022-08-20 08:13 | PM.OP.COLON ---
Operative Date/Time/Diagnoses Date of procedure: 08/20/22 Time of procedure: 08:13 Pre-op diagnosis: Rectal bleeding Post-op diagnosis: same Procedure & Clinicians Study performed: Colonoscopy Same procedure as scheduled: Yes Surgeon: Klaus Govea Procedure Notes Procedure in detail: Surgeon: Klaus Govea MD Anesthesia: Aura Burnett WAREHOUSE ORDER FILLER Procedure: The patient was brought to the endoscopy suite, placed in left lateral decubitus position. The patient was connected to monitoring devices. A time-out was performed. Sedation was administered. Once the patient was adequately sedated, a digital rectal exam was performed and was normal. The scope was then inserted and advanced to the cecum where the appendiceal orifice was identified and photographed. The scope was then slowly withdrawn over greater than 6 minutes. The mucosa was thoroughly inspected. There were no polyps. There worse rare scattered diverticula, mostly in the left colon. The scope was retroflexed in the rectum. No abnormalities were seen. The scope was straightened and removed. The patient was awakened and brought to recovery. Scope withdrawal time: 6 minutes Sedation time: 10 minutes EBL: 0 Findings: Rare scattered diverticula mostly in the left colon Post-procedure Recommendations: Colonoscopy in 10 years Disposition: PACU
[2022-08-20 08:17] VITALS: BP 105/73; PULSE 75; RESP 16; O2SAT 99
[2022-08-20 08:23] VITALS: BP 127/91; PULSE 60; RESP 16; O2SAT 98
== END 2022-08-20 08:37 | disposition home or self-care (01) ==
PROVIDERS: PCP Family Medicine; Referring Provider Surgery; Visit Provider Surgery
PROC: 0DJD8ZZ Inspection of Lower Intestinal Tract, Via Natural or Artificial Opening Endoscopic (ICD-10-PCS; CPT 45378; principal; 2022-08-20 07:45)
DX: K62.5 Hemorrhage of anus and rectum (principal); K57.30 Diverticulosis of large intestine without perforation or abscess without bleeding
CPT/HCPCS: 45378; J2405; J2704

== ENCOUNTER → 2022-09-14 07:59 | Outpatient (CLI) | payer OTHER, MEDICAID, SELFPAY ==
--- NOTE | 2022-09-14 | DI.MG.S_ITS ---
BILATERAL DIGITAL SCREENING MAMMOGRAM 3D/2D WITH CAD: 09/14/2022 CLINICAL: Routine screening. Baseline exam. No prior exams were available for comparison. There are scattered areas of fibroglandular density in both breasts (category b / 25%-50% glandular tissue). Current study was also evaluated with a Computer Aided Detection (CAD) system. No significant masses, calcifications, or other findings are seen in either breast. IMPRESSION: NEGATIVE There is no mammographic evidence of malignancy. A 1 year screening mammogram is recommended. Based on the Tyrer Cuzick model (a risk assessment model) the patient's lifetime risk is 4.4% and her 10 year risk is 0.6%. According to the ACR, ACS, and NCCN guidelines, an annual breast MRI exam along with mammogram is recommended if the patient's lifetime risk is 20% or greater. This exam was interpreted at Station ID: [id number]. NOTE: For mammograms, a report in lay terms will be sent to the patient. Approximately 15% of breast malignancies will not be visualized mammographically. In the management of a palpable breast mass, a negative mammogram must not discourage biopsy of a clinically suspicious lesion. Electronically Signed By: Arpita ramires/carissa:09/14/2022 08:45:39 letter sent: Normal Exam ACR BI-RADS Category 1: Negative [id number]
== END ==
PROVIDERS: PCP Family Medicine; Referring Provider Family Medicine; Visit Provider Family Medicine
DX: Z12.31 Encounter for screening mammogram for malignant neoplasm of breast (principal)
CPT/HCPCS: 77063; 77067

== ENCOUNTER 2023-10-07 06:42 | Day surgery (SDC) | payer OTHER, MEDICAID, SELFPAY ==
[2023-09-30 15:12] VITALS: BMI 43.7
[2023-10-07] MEDS: LACTATED RINGERS 1,000 ML 42 ML IV ×2 (07:21→08:36)
[2023-10-07] MEDS: ACETAMINOPHEN 325 MG TABLET 975 MG PO (07:23)
--- NOTE | 2023-10-07 07:44 | PM.PREOP ---
Pre-operative Note Interval Note History & Physical reviewed/Exam performed by Physician: Yes Changes to H&P: No H&P completed within 30 days and has changed as indicated here:: see H&P from 09/27/23
[2023-10-07] MEDS: CEFAZOLIN 2 GM/100 ML PREMIX 100 ML IV (07:54)
--- NOTE | 2023-10-07 08:09 | SUR.OPER ---
Lithotomy on padded OR bed, head on pillow, arms secured on padded arm boards at <90 degrees abduction. Legs secured in padded yellow fins stirrups.
[2023-10-07] MEDS: BUPIVACAINE 0.25% (PF) VIAL 30 ML INJ (08:13)
--- NOTE | 2023-10-07 09:01 | PM.OP.1 ---
Operative Date/Time/Diagnoses Date of procedure: 10/07/23 Time of procedure: 08:00 Pre-op diagnosis: Stage 3 rectocele Post-op diagnosis: same Procedure & Clinicians Procedure: Posterior colporrhaphy Same procedure as scheduled: Yes Indications: 43yo F with symptomatic stage 3 rectocele, desiring surgical repair. Surgeon: Monisha Naqvi Assembling Machine Operator: Ashley Foreman Anesthesia Type: General Operative Notes Findings: Stage 3 rectocele confirmed with exam under anesthesia. Closure Type: primary Specimen(s): none sent Estimated Blood Loss (mL): 10 Blood products transfused: none Procedure in detail: The patient received preoperative 2g Ancef approximately 30 minutes prior to surgery. The patient was taken to the operating room and given adequate anesthesia.? Sequential compression devices were applied to the lower extremities and the patient was then placed in the dorsal lithotomy position using yellow-fin stirrups.? Vaginal exam confirmed the in-office physical exam findings. The perineum was prepped and draped in the usual manner and a Andrea catheter was inserted into the bladder and attached to constant drainage. Given the patient?s findings of a rectocele, attention was turned to the posterior repair.? 0.25% marcaine was injected along the posterior vaginal wall defect in the submucosal space for hydrodissection. A triangular incision was made along the posterior introitus and perineal body, and the mucosa was excised. The vaginal mucosa was then serially dissected off the underlying rectovaginal fascia in the midline, and a vaginal midline mucosal incision was then made from the perineum to the proximal border of the rectocele.? The vaginal mucosa was then dissected off the underlying rectovaginal fascia and rectocele bilaterally to the levator ani using blunt dissection aided by Metzenbaum scissors. The rectovaginal septum was then plicated in the midline using interrupted 2-0 suture with care given to prevent significant levatorplasty with resulting vaginal narrowing.? The excess vaginal mucosa was then trimmed, and the vaginal mucosa was then reapproximated in a running fashion with 2-0 Vicryl suture. The perineal body was then recreated using a crown stitch to reapproximate the transverse perineal and bulbocavernosus muscles.? Excellent strength of the perineal body was recreated.?? The perineum was then closed in the usual manner with submucosal and subcutaneous stiches of 2-0 Vicryl.? After closure of the perineum, good basal support and a normal sized vaginal introitus was confirmed. Surgical correction of the rectocele was confirmed and rectal injury excluded with a digital rectal exam following the repair. Following the procedure, hemostasis was confirmed.?The andrea catheter was removed. Sponge count and needle count at the end of the procedure were correct.? The patient tolerated the procedure without complication and was transferred to the recovery room in stable condition. Complications: none Post-operative Condition: stable Disposition: PACU Plan for aftercare: Discharge home once meeting criteria.
[2023-10-07 09:05] VITALS: BP 125/73; PULSE 69; RESP 12; TEMP 37.7
[2023-10-07 09:10] VITALS: BP 131/82; PULSE 68; RESP 12; O2SAT 95
[2023-10-07 09:15] VITALS: BP 115/49; PULSE 75; RESP 18; O2SAT 97
[2023-10-07] MEDS: ONDANSETRON 4 MG/2 ML INJ IV (09:15)
[2023-10-07 09:20] VITALS: BP 110/51; PULSE 67; RESP 17; TEMP 36.5; O2SAT 97
[2023-10-07 09:25] VITALS: BP 104/54; PULSE 67; RESP 15; O2SAT 96
[2023-10-07] MEDS: METOCLOPRAMIDE 10 MG/2 ML INJ IV (09:27)
[2023-10-07 09:35] VITALS: BP 110/43; PULSE 68; RESP 15; O2SAT 98
== END 2023-10-07 10:06 | disposition home or self-care (01) ==
LOC: OR 06:43 → AC 06:43
PROVIDERS: PCP Family Medicine; Referring Provider Student in an Organized Health Care Education/Training Program; Visit Provider Student in an Organized Health Care Education/Training Program
PROC: (CPT 57250; principal; 2023-10-07 07:45)
DX: N81.6 Rectocele (principal)
CPT/HCPCS: 57250; J0690; J1100; J1885; J2405; J2704; J2765; J3010

== ENCOUNTER → 2023-10-20 09:12 | Outpatient (CLI) | payer OTHER, MEDICAID, SELFPAY ==
[2023-10-20 09:38] LABS: Add Manual Diff / Slide Review NO; Basophils Absolute Auto 100 /uL (0-100); Basophils Percent Auto 0.5 % (0-2); Eosinophils Absolute Auto 400 /uL (0-450); Eosinophils Percent Auto 3.4 % (2-4); Hematocrit 41.6 % (36-46); Hemoglobin 14.3 g/dL (12.0-16.0); Lymphocytes Absolute Auto 2800 /uL (1100-4500); Lymphocytes Percent Auto 26.1 % (25-40); Mean Corpuscular HGB Conc 34.3 % (30-36); Mean Corpuscular Hemoglobin 29.2 PG (26-34); Mean Corpuscular Volume 85.1 fL (80-100); Monocytes Absolute Auto 700 /uL (0-900); Monocytes Percent Auto 6.3 % (3-14); Neutrophils Absolute Auto 6800 /uL (1500-7000); Neutrophils Percent Auto 63.7 % (50-75); Platelet Count 295 X10^3/uL (150-400); Red Blood Cell Count 4.89 X10^6/uL (4.0-5.2); Red Cell Distribution Width 13.7 % (11.6-14.8); White Blood Cell Count 10.7 X10^3/uL (4.5-11.0)
[2023-10-20 10:06] LABS: Hemoglobin A1C% w Est Avg Glu 5.9 % (4.0-6.0)
[2023-10-20 10:11] LABS: Alanine Aminotransferase 18 IU/L (<35); Albumin 4.4 g/dL (3.5-5.0); Albumin Globulin Ratio 1.6 (1.0-2.8); Alkaline Phosphatase 76 U/L (38-126); Aspartate Aminotransferase 21 IU/L (14-36); BUN Creatinine Ratio 29.7 (6-22); Bilirubin Total 0.5 mg/dL (0.2-1.3); Blood Urea Nitrogen 19 mg/dL (7-17); Calcium 9.5 mg/dL (8.4-10.2); Carbon Dioxide 26 mmol/L (22-32); Chloride 110 mmol/L (98-107); Estimated Glomerular Filt Rate > 60 mL/min (>60); Globulin 2.7 g/dL (1.7-4.1); Glucose 106 mg/dL (70-100); HEMOLYSIS < 15 (0-50); Sodium 142 mmol/L (137-145); Total Protein 7.1 g/dL (6.3-8.2)
[2023-10-20 10:52] LABS: Thyroid Stimulating Hormone 0.037 uIU/mL (0.47-4.68)
[2023-10-20 10:54] LABS: Vitamin B12 979 pg/mL (239-931)
== END ==
PROVIDERS: Family Provider Family Medicine; PCP Family Medicine; Referring Provider Psychiatry & Neurology Child & Adolescent Psychiatry; Visit Provider Psychiatry & Neurology Child & Adolescent Psychiatry
DX: F32.9 Major depressive disorder, single episode, unspecified (principal)
CPT/HCPCS: 36415; 80053; 82607; 83036; 84443; 85025

== ENCOUNTER → 2023-11-03 15:40 | Outpatient (CLI) | payer OTHER, MEDICAID, SELFPAY ==
--- NOTE | 2023-11-03 15:41 | DI.US.S_ITS ---
PROCEDURE: US THYROID INDICATIONS: Thyrotoxicosis TECHNIQUE: Real-time scanning was performed of the thyroid gland, with image documentation. COMPARISON: None. FINDINGS: Thyroid: Right lobe measures 5.5 x 1.9 x 1.7 cm. Left lobe measures 5.1 x 1.4 x 1.5 cm. Isthmus is 0.4 cm thick. Echotexture is homogeneous. Nodule number: 1 Location: Left mid thyroid lobe Size: 0.4 x 0.5 x 0.5 cm. Composition: Solid Echogenicity: Hyperechoic Shape: wider than tall. Margins: Irregular Echogenic foci: Macrocalcification Total points: 6 ACR TI-RADS category: 4 (moderately suspicious) IMPRESSION: There is a 0.5 cm TIRADS 4 (moderately suspicious) left mid thyroid nodule. Per consensus criteria, no required imaging follow-up recommended given its small size of less than 1.0 cm. ACR TI-RADS definitions and recommendations: TI-RADS 1 (benign): 0 points. FNA not needed. TI-RADS 2 (not suspicious): 2 points. FNA not needed. TI-RADS 3 (mildly suspicious): 3 points. * FNA if 2.5 cm or larger, follow up if 1.5 cm or larger (at 1, 3, and 5 years). TI-RADS 4 (moderately suspicious): 4-6 points. * FNA if 1.5 cm or larger, follow up if 1 cm or larger (at 1, 2, 3, and 5 years). TI-RADS 5 (highly suspicious): 7 points or more. * FNA if 1 cm or larger, follow up if 0.5 cm or larger (every year for 5 years). Dictated by: Shin Joyce M.D. on 11/04/2023 at 14:20 Approved by: Shin Joyce M.D. on 11/04/2023 at 14:29
== END ==
PROVIDERS: Family Provider Family Medicine; PCP Family Medicine; Referring Provider Family Medicine; Visit Provider Family Medicine
DX: E05.90 Thyrotoxicosis, unspecified without thyrotoxic crisis or storm (principal); E04.1 Nontoxic single thyroid nodule
CPT/HCPCS: 76536

== ENCOUNTER 2023-11-29 11:15 | Outpatient (RCR) | payer OTHER, MEDICAID, SELFPAY ==
--- NOTE | 2023-11-19 17:06 | PT.OIE ---
Current Diagnoses Mixed incontinence (11/19/23) Past Medical History (Last Updated 09/27/23 @ 11:33 by Monisha Naqvi DO) ADHD Anxiety Bipolar disorder Granuloma of skin Hearing loss History of recurrent ear infection Major depressive disorder Obesity, Class III, BMI 40-49.9 (morbid obesity) Prolapse of vaginal wall PTSD (post-traumatic stress disorder) Status post hysteroscopy (11/26/17) Past Surgical History (Last Updated 10/19/23 @ 16:26 by Monisha Naqvi DO) History of repair of rectocele (~10/2023) S/P laparoscopic supracervical hysterectomy (~2018) Visit Care Team Role Provider Type Ry Hayes MD Family Provider Physician Primary Care Provider Specialty: Family Practice Address: [address] [place] [address], [facility] Email: [email or web address] Monisha Naqvi DO Attending Provider Physician Referring Provider Specialty: REDUCING SYSTEM OPERATOR Address: [address] [place] [address], [facility] Email: [email or web address] Physical Therapy Initial Evaluation PT-OP-A Visit Information Start: 11/09/23 20:38 Freq: Status: Active Protocol: Document 11/19/23 09:48 LRN (Rec: 11/19/23 10:33 LRN [id number]) Out-Patient Physical Therapy Visit Information Visit Information Visit Type Initial Evaluation Visit Start Time 09:48 Visit Stop Time 10:32 Visit Number 1 Evaluation Information Evaluation Date 11/19/23 Precautions Precautions 10/2018 hyste, 10/07/23 Rectocele repair, depression controlled by med (starting new one today), intermittent chronic back pain, 5'2 230# PT-OP-B Current Condition Start: 11/09/23 20:38 Freq: Status: Active Protocol: Document 11/19/23 09:48 LRN (Rec: 11/19/23 10:33 LRN [id number]) Current Condition History of Current Condition Onset Date 10/07/23 rectocele surgery Current Complaints Urinary leakage at end of days with urgency. History of Current Condition Had surgery on the back wall of vaginal canal to correct rectocele - 6 wks ago. Now hasn't had leakage with sneezing. With walking and playing basketball, and drinks a lot of water. Towards the end of the day, after drinking her fluids to stay hydrated, she feels urgency to urinate. When has urge she states inconsistently she is not able to hold her urine. Has stairs before getting to bathroom and she tends to leak going up the stairs. If stood and did nothing, then she can hold it, but it takes her waiting and not moving her body. Now has new job and her ex routine is different, now must ex in morning/ drinking more water in AM, before would ex in PM and drink water then. Prior Treatments and Tests Rectocele repqir - 10/07/23. Had referral before surgery but was not able to get into PT. Pt is [facility] resident . PT for back pain at [facility] (2019) , but not able to do the ex's since the rectocele surgery. Treatment Goals Patient/Caregiver Goals Pt goals: Strengthen PF to Eliminate urinary leakage with walking up/down stairs. Train bladder to void at least every 2 hrs without leaking. HEP. Personal Factors Other Personal Factors That May Effect Works part-time working at [employer] by self; 2018 [employer], 10/07/23 Rectocele repair, starting new depression med 11/19/23, intermittent chronic back pain . PT-OP-C Subjective Start: 11/09/23 20:38 Freq: Status: Active Protocol: Document 11/19/23 09:48 LRN (Rec: 11/19/23 10:33 LRN [id number]) Patient Questionnaires Pelvic Pain and Urgency/Frequency Patient Symptom Scale Pelvic Pain Score 5 PT-OP-I Pelvic Floor Start: 11/09/23 20:38 Freq: Status: Active Protocol: Document 11/19/23 09:48 LRN (Rec: 11/19/23 10:33 LRN [id number]) Pelvic Floor Assessment Urine Urinary Symptoms Urge Sensation Other Urinary Symptoms Sometimes incomplete emptying Leakage Size Medium Leakage Cause Exercise Other Leakage Causes Ambulating stairs. Leakage 5 -6x/wk. Possibly Food issue Nocturia 1x Pads Used In 24 Hours 6 Urine Pad Type Panty Liner Bowel Other Bowel Symptoms Daily BM. Takes a lot of fiber. Bowel Movement Frequency 2x/day Russell Stool Chart Type 1-7 4 Russell Stool Chart Comments w/o Fiber in diet, has smaller susage like. Pelvic Clock Pelvic Clock 3-6 Atrophy Pelvic Clock 6-9 Atrophy Prolapse Cystocele Grade 3 Perineal Descent Resting Present Bearing Present Contraction Ability Voluntary Relaxation Moderate Manual Muscle Testing Left 2 Manual Muscle Testing Right 2 Manual Muscle Testing Anterior 2 Manual Muscle Testing Posterior 3 Muscle Endurance (Seconds) 2 Number of Quick Contractions In 10 7 Seconds PT-OP-J Posture/Palpation/Skin Start: 11/09/23 20:38 Freq: Status: Active Protocol: Document 11/19/23 09:48 LRN (Rec: 11/19/23 10:33 LRN [id number]) Posture Evaluation Position Standing Evaluation View all views Head/C-Spine Posture Forward Head T-Spine Posture Increased Kyphosis L-Spine Posture Increased Lordosis,Shifted Right Arm Posture (L) Internally Rotated,(R) Internally Rotated Knee Posture (L) Genu Valgus,(R) Genu Valgus Comments Posture Comments C-curve of spine, apex on left in mid thoracic region. PT-OP-K Range of Motion Start: 11/09/23 20:38 Freq: Status: Active Protocol: Document 11/19/23 09:48 LRN (Rec: 11/19/23 10:33 LRN [id number]) Lumbar Spine Range of Motion Lumbar Spine Active Percentage Testing Position Standing Flexion 100 Extension 100 Rotation Left 80 Rotation Right 100 Lateral Flexion Left 100 Lateral Flexion Right 80 Hip Goniometric Range of Motion Hip Right Passive Testing Position Supine Internal Rotation 20 External Rotation 50 Left Passive Testing Position Supine Internal Rotation 25 External Rotation 45 PT-OP-M Strength Start: 11/09/23 20:38 Freq: Status: Active Protocol: Document 11/19/23 09:48 LRN (Rec: 11/19/23 10:33 LRN [id number]) Trunk Strength Trunk Manual Muscle Testing Core Stabilization Decreased rotational stability . Hip Strength Hip Manual Muscle Testing Right Comments Strength is normal. Left Comments Strength is normal. PT-OP-Q Treatments Start: 11/09/23 20:38 Freq: Status: Active Protocol: Document 11/19/23 09:48 LRN (Rec: 11/19/23 10:33 LRN [id number]) Self-Care/Home Management Treatment Education Other Education Discussed results of evaluation, goals, and plan of care (POC) with pt, discussed attendance/cx/dns policy; pt agreeable to goals, attendance /cx/dns policy and POC. Activities Self-Care/Home Management Activities Issued & reviewed HEP: Kegel ex's and discussed exercise of Quick Flicks, Long Holds and Aggravators. PT-OP-T Assessment and Plan Start: 11/09/23 20:38 Freq: Status: Active Protocol: Document 11/19/23 09:48 LRN (Rec: 11/19/23 10:33 LRN [id number]) Physical Therapy Assessment Rehab Potential Rehabilitation Potential Good Evaluation Complexity Number of Personal Factors/Comorbidities 3 or More Number of Body Systems Impaired 4 or More Clinical Presentation at Evaluation Evolving Impairments Impairments Activity Tolerance,Pain, Posture,Strength,Transfers Goals Three Impairment Stress incontinence Impairment Urinary leakage walking up her stairs when getting home. Short Term Goal (STG) Improve PF quick contraction strength to perform 9-10 quick contractions in 10 secs to delay urination. STG Duration 4 wks-12/17/23 Long-Term Goal (LTG) Improve PF strength to hold PF contraction 10 secs to allow pt to remain continent when walking up stairs. LTG Duration 10 wks-01/28/24 Two Impairment Urge incontinence towards the end of her day. Impairment Pt reports voiding less than every 2 hrs with urinary leakage. Short Term Goal (STG) Pt educated in urge deference technique to be able to delay urination to get to bathroom without leaking. STG Duration 4 wks-12/17/23 Long-Term Goal (LTG) Retraining of bladder to void at minimal every every 2 hrs without leaking. LTG Duration 10 wks-01/28/24 One Impairment Pt lacks an independent self care HEP. Short Term Goal (STG) Pt educated and demonstrates proper transfers to lessen core abdominal pressure. STG Duration 4 wks-12/17/23 Delivery Helper Goal (LTG) Pt will be independent in a self care HEP for PF/core strengthening and hip (IR/ER) mobility exercises. LTG Duration 10 wks-01/28/24 Assessment Summary Assessment Pt is a 43 yo female, 6 wks po rectocele repair, who presents with mixed urinary incontinence and cystocele, grade 3 due to PF weakness, and decreased core strength and decreased hip rotation mobility. Pt will benefit from skilled physical therapy to work towards achieving the above stated goals. Her rehabilitation time might need to be extended due to the severity of her cystocele. Physical Therapy Plan Frequency and Duration Frequency of Treatment 1x/Week Duration of treatment (weeks) 10 Plan of Care Start Date 11/19/23 Plan of Care End Date 01/28/24 Therapeutic Interventions Therapeutic Interventions Home Exercise Program,Joint Mobilizations,Manual Therapy, Neuromuscular Re-education, Self-Care/Home Management,Soft Tissue Mobilization, Therapeutic Activities, Therapeutic Exercises Modalities Biofeedback,Electric Stimulation Next Visit Focus/Plan Next Note Type Treatment Note Next Visit Plan Next: Review Kegels. Vemg assessment and PF strengthening, Pt training/ex in core pressure management, urge deference technique and bladder retraining, PF strengthening (anterior & lateral horton > posterior). Assess abdmenal tightness and PF strengthening with functional activities (work) and exercise. POC: Pt education, Manual therapy. ? Biofeedback with vaginal sensor. Therapeutic Exercises, Therapeutic Activities, Neuromuscular Reeducation.
--- NOTE | 2023-11-22 16:11 | PT.OTN ---
Current Diagnoses Mixed incontinence (11/22/23) Physical Therapy Treatment Note PT-OP-A Visit Information Start: 11/09/23 20:38 Freq: Status: Active Protocol: Document 11/22/23 11:27 LRN (Rec: 11/22/23 12:11 LRN [id number]) Out-Patient Physical Therapy Visit Information Visit Information Visit Type Treatment Note Visit Start Time 11:27 Visit Stop Time 12:08 Visit Number 07/31 Evaluation Information Evaluation Date 11/19/23 Precautions Precautions 10/2018 hyste, 10/07/23 Rectocele repair, depression controlled by med (starting new one today), intermittent chronic back pain, 5'2 230# PT-OP-B Current Condition Start: 11/09/23 20:38 Freq: Status: Active Protocol: Document 11/19/23 09:48 LRN (Rec: 11/19/23 10:33 LRN [id number]) Current Condition History of Current Condition Onset Date 10/07/23 rectocele surgery Current Complaints Urinary leakage at end of days with urgency. History of Current Condition Had surgery on the back wall of vaginal canal to correct rectocele - 6 wks ago. Now hasn't had leakage with sneezing. With walking and playing basketball, and drinks a lot of water. Towards the end of the day, after drinking her fluids to stay hydrated, she feels urgency to urinate. When has urge she states inconsistently she is not able to hold her urine. Has stairs before getting to bathroom and she tends to leak going up the stairs. If stood and did nothing, then she can hold it, but it takes her waiting and not moving her body. Now has new job and her ex routine is different, now must ex in morning/ drinking more water in AM, before would ex in PM and drink water then. Prior Treatments and Tests Rectocele repqir - 10/07/23. Had referral before surgery but was not able to get into PT. Pt is [place] resident . PT for back pain at [facility] (2019) , but not able to do the ex's since the rectocele surgery. Treatment Goals Patient/Caregiver Goals Pt goals: Strengthen PF to Eliminate urinary leakage with walking up/down stairs. Train bladder to void at least every 2 hrs without leaking. HEP. Personal Factors Other Personal Factors That May Effect Works part-time working at [employer] by self; 2018 zahraa, 10/07/23 Rectocele repair, starting new depression med 11/19/23, intermittent chronic back pain . PT-OP-C Subjective Start: 11/09/23 20:38 Freq: Status: Active Protocol: Document 11/22/23 11:27 LRN (Rec: 11/22/23 12:11 LRN [id number]) OP-PT Subjective Patient Comments Patient Comments Working today. States she is trying not to go to the bathroom all the time, so has tried to wait going every 2 hrs. PT-OP-I Pelvic Floor Start: 11/09/23 20:38 Freq: Status: Active Protocol: Document 11/22/23 11:27 LRN (Rec: 11/22/23 12:11 LRN [id number]) Pelvic Floor Assessment SEMG (uV) Baseline 1.9 Quick Contraction 11.9 Recruitment Pattern Poor/Slow Relaxation Poor/Slow Holding Fair Stability of Hold Poor/Slow SEMG Stability of Rest Good Comments Pelvic Floor Comments Extra time taken for insertion of eletrode to assure no pain or discomfort before & after insertion. Bolster removed from legs after quick contractions due to onset of groin discomfort. Quick Flicks: (legs on Bolster) 10 reps strength (uV's): avg work 11.9, avg rest 4.9. 20 reps strength (uV's): avg work 11.9, avg rest 5.2. Long Holds: (legs w/o Bolster-legs moving occasionally) 10 reps strength (uV's): avg work 9.2, avg rest 5.9. 20 rep s strength (uV's): avg work 10.5, avg rest 6.5. PT-OP-J Posture/Palpation/Skin Start: 11/09/23 20:38 Freq: Status: Active Protocol: Document 11/19/23 09:48 LRN (Rec: 11/19/23 10:33 LRN [id number]) Posture Evaluation Position Standing Evaluation View all views Head/C-Spine Posture Forward Head T-Spine Posture Increased Kyphosis L-Spine Posture Increased Lordosis,Shifted Right Arm Posture (L) Internally Rotated,(R) Internally Rotated Knee Posture (L) Genu Valgus,(R) Genu Valgus Comments Posture Comments C-curve of spine, apex on left in mid thoracic region. PT-OP-K Range of Motion Start: 11/09/23 20:38 Freq: Status: Active Protocol: Document 11/19/23 09:48 LRN (Rec: 11/19/23 10:33 LRN [id number]) Lumbar Spine Range of Motion Lumbar Spine Active Percentage Testing Position Standing Flexion 100 Extension 100 Rotation Left 80 Rotation Right 100 Lateral Flexion Left 100 Lateral Flexion Right 80 Hip Goniometric Range of Motion Hip Right Passive Testing Position Supine Internal Rotation 20 External Rotation 50 Left Passive Testing Position Supine Internal Rotation 25 External Rotation 45 PT-OP-M Strength Start: 11/09/23 20:38 Freq: Status: Active Protocol: Document 11/19/23 09:48 LRN (Rec: 11/19/23 10:33 LRN [id number]) Trunk Strength Trunk Manual Muscle Testing Core Stabilization Decreased rotational stability . Hip Strength Hip Manual Muscle Testing Right Comments Strength is normal. Left Comments Strength is normal. PT-OP-Q Treatments Start: 11/09/23 20:38 Freq: Status: Active Protocol: Document 11/22/23 11:27 LRN (Rec: 11/22/23 12:11 LRN [id number]) Therapeutic Exercises Supine Exercises Long Hold PF contractions Supine Exercise Name 10 SH/10 SR Kegel Reps/Minutes 20x Comments Extra time taken for training for biofeedback Quick PF contractions Supine Exercise Name 2 SH/4 SR Kegel Reps/Minutes 20x Comments Extra time taken for training for biofeedback Baseline Supine Exercise Name 60 sec resting Reps/Minutes 2' Comments Extra time taken for training for biofeedback Self-Care/Home Management Treatment Education Other Education Discussed and educated pt in specifics for completion of in use of Bladder Diary and I/S in tracking for 1 week. PT-OP-T Assessment and Plan Start: 11/09/23 20:38 Freq: Status: Active Protocol: Document 11/22/23 11:27 LRN (Rec: 11/22/23 12:11 LRN [id number]) Physical Therapy Assessment Goals Three Impairment Stress incontinence Impairment Urinary leakage walking up her stairs when getting home. Short Term Goal (STG) Improve PF quick contraction strength to perform 9-10 quick contractions in 10 secs to delay urination. STG Duration 4 wks-12/17/23 Fpc Goal (LTG) Improve PF strength to hold PF contraction 10 secs to allow pt to remain continent when walking up stairs. LTG Duration 10 wks-01/28/24 Two Impairment Urge incontinence towards the end of her day. Impairment Pt reports voiding less than every 2 hrs with urinary leakage. Short Term Goal (STG) Pt educated in urge deference technique to be able to delay urination to get to bathroom without leaking. STG Duration 4 wks-12/17/23 Metal Treater Goal (LTG) Retraining of bladder to void at minimal every every 2 hrs without leaking. LTG Duration 10 wks-01/28/24 One Impairment Pt lacks an independent self care HEP. Short Term Goal (STG) Pt educated and demonstrates proper transfers to lessen core abdominal pressure. STG Duration 4 wks-12/17/23 Metal Treater Goal (LTG) Pt will be independent in a self care HEP for PF/core strengthening and hip (IR/ER) mobility exercises. LTG Duration 10 wks-01/28/24 Assessment Summary Assessment Pt is a 43 yo female, 6 wks po rectocele repair, who presents with mixed urinary incontinence and cystocele, grade 3 due to PF weakness, and decreased core strength and decreased hip rotation mobility. Per Vemg assessment , pt has good quick contraction strength of 11.9uV 's but is not able to get to resting (4.9 vs 1.9); Long hold Kegels show very weak endurance with hold of 1-2 secs before fatiguing and high resting tone. Pt is somewhat slow to contract and slow to relax. Should be noted that the pt was not able to keep legs still during endurance testing. Pt needing endurance strengthening > quick flick strengthening. Physical Therapy Plan Frequency and Duration Frequency of Treatment 1x/Week Duration of treatment (weeks) 10 Plan of Care Start Date 11/19/23 Plan of Care End Date 01/28/24 Next Visit Focus/Plan Next Note Type Treatment Note Next Visit Plan Next: Pt training/ex in core pressure management, urge deference technique and bladder retraining, PF strengthening (anterior & lateral horton > posterior). Assess abdomenal tightness and PF strengthening with functional activities (work) and exercise. POC: Pt education, Manual therapy. ? Biofeedback with vaginal sensor. Therapeutic Exercises, Therapeutic Activities, Neuromuscular Reeducation.
--- NOTE | 2023-11-29 12:45 | PT.OTN ---
Current Diagnoses Mixed incontinence (11/29/23) Physical Therapy Treatment Note PT-OP-A Visit Information Start: 11/09/23 20:38 Freq: Status: Active Protocol: Document 11/29/23 11:34 LRN (Rec: 11/29/23 12:41 LRN [id number]) Out-Patient Physical Therapy Visit Information Visit Information Visit Type Treatment Note Visit Start Time 11:34 Visit Stop Time 12:22 Visit Number 08/28 Evaluation Information Evaluation Date 11/19/23 Precautions Precautions 10/2018 hyste, 10/07/23 Rectocele repair, depression controlled by med (starting new one today), intermittent chronic back pain, 5'2 230# PT-OP-B Current Condition Start: 11/09/23 20:38 Freq: Status: Active Protocol: Document 11/19/23 09:48 LRN (Rec: 11/19/23 10:33 LRN [id number]) Current Condition History of Current Condition Onset Date 10/07/23 rectocele surgery Current Complaints Urinary leakage at end of days with urgency. History of Current Condition Had surgery on the back wall of vaginal canal to correct rectocele - 6 wks ago. Now hasn't had leakage with sneezing. With walking and playing basketball, and drinks a lot of water. Towards the end of the day, after drinking her fluids to stay hydrated, she feels urgency to urinate. When has urge she states inconsistently she is not able to hold her urine. Has stairs before getting to bathroom and she tends to leak going up the stairs. If stood and did nothing, then she can hold it, but it takes her waiting and not moving her body. Now has new job and her ex routine is different, now must ex in morning/ drinking more water in AM, before would ex in PM and drink water then. Prior Treatments and Tests Rectocele repqir - 10/07/23. Had referral before surgery but was not able to get into PT. Pt is [place] resident . PT for back pain at [facility] (2019) , but not able to do the ex's since the rectocele surgery. Treatment Goals Patient/Caregiver Goals Pt goals: Strengthen PF to Eliminate urinary leakage with walking up/down stairs. Train bladder to void at least every 2 hrs without leaking. HEP. Personal Factors Other Personal Factors That May Effect Works part-time working at [employer] by self; 2018 zahraa, 10/07/23 Rectocele repair, starting new depression med 11/19/23, intermittent chronic back pain . PT-OP-C Subjective Start: 11/09/23 20:38 Freq: Status: Active Protocol: Document 11/29/23 11:34 LRN (Rec: 11/29/23 12:41 LRN [id number]) OP-PT Subjective Patient Comments Patient Comments States she is noticing a difference in less major leaking (2 vs usual 4-5 leaking). I am not able to ex and do breathing + Kegels at the same time. PT-OP-I Pelvic Floor Start: 11/09/23 20:38 Freq: Status: Active Protocol: Document 11/22/23 11:27 LRN (Rec: 11/22/23 12:11 LRN [id number]) Pelvic Floor Assessment SEMG (uV) Baseline 1.9 Quick Contraction 11.9 Recruitment Pattern Poor/Slow Relaxation Poor/Slow Holding Fair Stability of Hold Poor/Slow SEMG Stability of Rest Good Comments Pelvic Floor Comments Extra time taken for insertion of eletrode to assure no pain or discomfort before & after insertion. Bolster removed from legs after quick contractions due to onset of groin discomfort. Quick Flicks: (legs on Bolster) 10 reps strength (uV's): avg work 11.9, avg rest 4.9. 20 reps strength (uV's): avg work 11.9, avg rest 5.2. Long Holds: (legs w/o Bolster-legs moving occasionally) 10 reps strength (uV's): avg work 9.2, avg rest 5.9. 20 rep s strength (uV's): avg work 10.5, avg rest 6.5. PT-OP-J Posture/Palpation/Skin Start: 11/09/23 20:38 Freq: Status: Active Protocol: Document 11/19/23 09:48 LRN (Rec: 11/19/23 10:33 LRN [id number]) Posture Evaluation Position Standing Evaluation View all views Head/C-Spine Posture Forward Head T-Spine Posture Increased Kyphosis L-Spine Posture Increased Lordosis,Shifted Right Arm Posture (L) Internally Rotated,(R) Internally Rotated Knee Posture (L) Genu Valgus,(R) Genu Valgus Comments Posture Comments C-curve of spine, apex on left in mid thoracic region. PT-OP-K Range of Motion Start: 11/09/23 20:38 Freq: Status: Active Protocol: Document 11/19/23 09:48 LRN (Rec: 11/19/23 10:33 LRN [id number]) Lumbar Spine Range of Motion Lumbar Spine Active Percentage Testing Position Standing Flexion 100 Extension 100 Rotation Left 80 Rotation Right 100 Lateral Flexion Left 100 Lateral Flexion Right 80 Hip Goniometric Range of Motion Hip Right Passive Testing Position Supine Internal Rotation 20 External Rotation 50 Left Passive Testing Position Supine Internal Rotation 25 External Rotation 45 PT-OP-M Strength Start: 11/09/23 20:38 Freq: Status: Active Protocol: Document 11/19/23 09:48 LRN (Rec: 11/19/23 10:33 LRN [id number]) Trunk Strength Trunk Manual Muscle Testing Core Stabilization Decreased rotational stability . Hip Strength Hip Manual Muscle Testing Right Comments Strength is normal. Left Comments Strength is normal. PT-OP-Q Treatments Start: 11/09/23 20:38 Freq: Status: Active Protocol: Document 11/29/23 11:34 LRN (Rec: 11/29/23 12:41 LRN [id number]) Therapeutic Exercises Supine Exercises Long Hold PF contractions Supine Exercise Name BKFO w/TB and Ball squeeze Equipment Used 21' Reps/Minutes 10 SH/10 SR Kegel Comments V cuing needed for counting hold and for Kegel hold. Sitting Exercises Sit<>stand Sitting Exercise Name sit<>stand w/breath, sit<> stand w/PF, sit<>stand w/ breath/PF Reps/Minutes 16' Comments Much cuing needed for breath with mvmt; pt not able to do with breath & PF. Neuro Re-Education Treatment Movement Re-Education Movement Re-education Activities 12' Core pressure management education & training for breathwork with transfer movement. Was only able to train for sit<>stand due to pt feeling overwhelmed at not being able to do sit<>stand with breath well. PT-OP-T Assessment and Plan Start: 11/09/23 20:38 Freq: Status: Active Protocol: Document 11/29/23 11:34 LRN (Rec: 11/29/23 12:41 LRN [id number]) Physical Therapy Assessment Goals Three Impairment Stress incontinence Impairment Urinary leakage walking up her stairs when getting home. Short Term Goal (STG) Improve PF quick contraction strength to perform 9-10 quick contractions in 10 secs to delay urination. STG Duration 4 wks-12/17/23 Group Home Goal (LTG) Improve PF strength to hold PF contraction 10 secs to allow pt to remain continent when walking up stairs. LTG Duration 10 wks-01/28/24 Two Impairment Urge incontinence towards the end of her day. Impairment Pt reports voiding less than every 2 hrs with urinary leakage. Short Term Goal (STG) Pt educated in urge deference technique to be able to delay urination to get to bathroom without leaking. STG Duration 4 wks-12/17/23 Ocean Forwarder Goal (LTG) Retraining of bladder to void at minimal every every 2 hrs without leaking. LTG Duration 10 wks-01/28/24 One Impairment Pt lacks an independent self care HEP. Short Term Goal (STG) Pt educated and demonstrates proper transfers to lessen core abdominal pressure. 11/29/23: Pt educated in sit< >stand transfer with core pressure management. STG Duration 4 wks-12/17/23 progressed Ocean Forwarder Goal (LTG) Pt will be independent in a self care HEP for PF/core strengthening and hip (IR/ER) mobility exercises. 11/29/23: I/S pt in Kegel with ball squeeze and for TB hip ER with awareness of breathing and PF relaxation after contraction. LTG Duration 10 wks-01/28/24 progressed 11/29/23 Assessment Summary Assessment Pt is a 43 yo female, 6 wks po rectocele repair, who with mixed urinary incontinence, cystocele, grade 3, PF weakness, decreased core strength and decreased hip rotation mobility. Today pt was not able to perform more than 2 motions or actions at a time, even with v cuing, causing pt to be frustrated; thefore she had difficulty with core pressure management. It is expected that the pt will require more time to learn core pressure management . Physical Therapy Plan Frequency and Duration Frequency of Treatment 1x/Week Duration of treatment (weeks) 10 Plan of Care Start Date 11/19/23 Plan of Care End Date 08/23/24 Next Visit Focus/Plan Next Note Type Treatment Note Next Visit Plan Next: Pt training/ex in sit<> supine core pressure management (review/practice sit<>stand). Pt training in urge deference technique and bladder retraining; Assess abdomenal tightness; Issue HEP : anter PF strengthening with ball and lateral horton w/TB; and cont PF strengthening ( anterior & lateral horton > posterior), endurance strengthening > quick flick strengthening. PF strengthening with functional activities (work) and exercise. POC: Pt education, Manual therapy. ? Biofeedback with vaginal sensor. Therapeutic Exercises, Therapeutic Activities, Neuromuscular Reeducation.
--- NOTE | 2024-10-05 13:34 | PT.OPDS ---
Current Diagnoses Mixed incontinence (11/29/23) Visit Care Team Role Provider Type Ry Hayes MD Family Provider Physician Primary Care Provider Specialty: Family Practice Address: [address], [address], [place], [address] Email: [email or web address] Monisha Naqvi DO Attending Provider Physician Referring Provider Specialty: [employer] Address: [address] [place] [address], [address], [place], [address] Email: [email or web address] Visit Number Visit Number 08/28 Discharge Summary PT-OP-B Current Condition Start: 11/09/23 20:38 Freq: Status: Active Protocol: Document 11/19/23 09:48 LRN (Rec: 11/19/23 10:33 LRN [id number]) Current Condition History of Current Condition Onset Date 10/07/23 rectocele surgery Current Complaints Urinary leakage at end of days with urgency. History of Current Condition Had surgery on the back wall of vaginal canal to correct rectocele - 6 wks ago. Now hasn't had leakage with sneezing. With walking and playing basketball, and drinks a lot of water. Towards the end of the day, after drinking her fluids to stay hydrated, she feels urgency to urinate. When has urge she states inconsistently she is not able to hold her urine. Has stairs before getting to bathroom and she tends to leak going up the stairs. If stood and did nothing, then she can hold it, but it takes her waiting and not moving her body. Now has new job and her ex routine is different, now must ex in morning/ drinking more water in AM, before would ex in PM and drink water then. Prior Treatments and Tests Rectocele repqir - 10/07/23. Had referral before surgery but was not able to get into PT. Pt is [place] resident . PT for back pain at [facility] (2019) , but not able to do the ex's since the rectocele surgery. Treatment Goals Patient/Caregiver Goals Pt goals: Strengthen PF to Eliminate urinary leakage with walking up/down stairs. Train bladder to void at least every 2 hrs without leaking. HEP. Personal Factors Other Personal Factors That May Effect Works part-time working at [employer] by self; 2018 [email or web address], 10/07/23 Rectocele repair, starting new depression med 11/19/23, intermittent chronic back pain . PT-OP-C Subjective Start: 11/09/23 20:38 Freq: Status: Active Protocol: Document 11/29/23 11:34 LRN (Rec: 11/29/23 12:41 LRN [id number]) OP-PT Subjective Patient Comments Patient Comments States she is noticing a difference in less major leaking (2 vs usual 4-5 leaking). I am not able to ex and do breathing + Kegels at the same time. PT-OP-I Pelvic Floor Start: 11/09/23 20:38 Freq: Status: Active Protocol: Document 11/22/23 11:27 LRN (Rec: 11/22/23 12:11 LRN [id number]) Pelvic Floor Assessment SEMG (uV) Baseline 1.9 Quick Contraction 11.9 Recruitment Pattern Poor/Slow Relaxation Poor/Slow Holding Fair Stability of Hold Poor/Slow SEMG Stability of Rest Good Comments Pelvic Floor Comments Extra time taken for insertion of eletrode to assure no pain or discomfort before & after insertion. Bolster removed from legs after quick contractions due to onset of groin discomfort. Quick Flicks: (legs on Bolster) 10 reps strength (uV's): avg work 11.9, avg rest 4.9. 20 reps strength (uV's): avg work 11.9, avg rest 5.2. Long Holds: (legs w/o Bolster-legs moving occasionally) 10 reps strength (uV's): avg work 9.2, avg rest 5.9. 20 rep s strength (uV's): avg work 10.5, avg rest 6.5. PT-OP-J Posture/Palpation/Skin Start: 11/09/23 20:38 Freq: Status: Active Protocol: Document 11/19/23 09:48 LRN (Rec: 11/19/23 10:33 LRN [id number]) Posture Evaluation Position Standing Evaluation View all views Head/C-Spine Posture Forward Head T-Spine Posture Increased Kyphosis L-Spine Posture Increased Lordosis,Shifted Right Arm Posture (L) Internally Rotated,(R) Internally Rotated Knee Posture (L) Genu Valgus,(R) Genu Valgus Comments Posture Comments C-curve of spine, apex on left in mid thoracic region. PT-OP-K Range of Motion Start: 11/09/23 20:38 Freq: Status: Active Protocol: Document 11/19/23 09:48 LRN (Rec: 11/19/23 10:33 LRN [id number]) Lumbar Spine Range of Motion Lumbar Spine Active Percentage Testing Position Standing Flexion 100 Extension 100 Rotation Left 80 Rotation Right 100 Lateral Flexion Left 100 Lateral Flexion Right 80 Hip Goniometric Range of Motion Hip Right Passive Testing Position Supine Internal Rotation 20 External Rotation 50 Left Passive Testing Position Supine Internal Rotation 25 External Rotation 45 PT-OP-M Strength Start: 11/09/23 20:38 Freq: Status: Active Protocol: Document 11/19/23 09:48 LRN (Rec: 11/19/23 10:33 LRN [id number]) Trunk Strength Trunk Manual Muscle Testing Core Stabilization Decreased rotational stability . Hip Strength Hip Manual Muscle Testing Right Comments Strength is normal. Left Comments Strength is normal. PT-OP-T Assessment and Plan Start: 11/09/23 20:38 Freq: Status: Active Protocol: Document 10/05/24 16:21 LRN (Rec: 10/05/24 16:34 LRN Laptop) Physical Therapy Assessment Goals Three Impairment Stress incontinence Impairment Urinary leakage walking up her stairs when getting home. Short Term Goal (STG) Improve PF quick contraction strength to perform 9-10 quick contractions in 10 secs to delay urination. STG Duration 4 wks-12/17/23 [facility] Goal (LTG) Improve PF strength to hold PF contraction 10 secs to allow pt to remain continent when walking up stairs. LTG Duration 10 wks-01/28/24 Two Impairment Urge incontinence towards the end of her day. Impairment Pt reports voiding less than every 2 hrs with urinary leakage. Short Term Goal (STG) Pt educated in urge deference technique to be able to delay urination to get to bathroom without leaking. STG Duration 4 wks-12/17/23 [facility] Goal (LTG) Retraining of bladder to void at minimal every every 2 hrs without leaking. LTG Duration 10 wks-01/28/24 One Impairment Pt lacks an independent self care HEP. Short Term Goal (STG) Pt educated and demonstrates proper transfers to lessen core abdominal pressure. 11/29/23: Pt educated in sit< >stand transfer with core pressure management. STG Duration 4 wks-12/17/23 progressed [facility] Goal (LTG) Pt will be independent in a self care HEP for PF/core strengthening and hip (IR/ER) mobility exercises. 11/29/23: I/S pt in Kegel with ball squeeze and for TB hip ER with awareness of breathing and PF relaxation after contraction. LTG Duration 10 wks-01/28/24 progressed 11/29/23 Assessment Summary Assessment Pt is a 43 yo female, 6 wks po rectocele repair, who with mixed urinary incontinence who was seen for her initial eval on 11/19/23 and seen for 2 treatment visits. On her last attended visit the pt noted she had less major leakage episodes. She had difficulty managing her core pressure with transfers, but she was started on a HEP. The pt did not meet her goals due to lack of attendance. She was last seen 11/29/23 and her plan of care has now ; therefore the patient will need a new referral to return to physical therapy. The pt is being discharged today from physical therapy. Physical Therapy Plan Discharge Physical Therapy Discharge Reasons No Longer Attending PT Discharge Comments Thank you for your referral.
== END 2024-10-10 15:07 | disposition home or self-care (01) ==
LOC: PHYS 11:15
PROVIDERS: Family Provider Family Medicine; PCP Family Medicine; Referring Provider Student in an Organized Health Care Education/Training Program; Visit Provider Student in an Organized Health Care Education/Training Program
DX: N39.46 Mixed incontinence (principal)
CPT/HCPCS: 97110; 97112; 97162; 97535

== ENCOUNTER → 2024-04-27 14:46 | Outpatient (CLI) | payer OTHER, MEDICAID, SELFPAY | PROVIDERS: Family Provider Family Medicine; PCP Family Medicine; Referring Provider Family Medicine; Visit Provider Family Medicine | DX: R20.0 Anesthesia of skin (principal); R20.2 Paresthesia of skin | CPT/HCPCS: 95886; 95909 ==

== ENCOUNTER → 2024-06-07 16:18 | Outpatient (CLI) | payer OTHER, SELFPAY ==
--- NOTE | 2024-06-07 16:20 | DI.RAD.S_ITS ---
PROCEDURE: XR KNEE RT 1TO2V INDICATIONS: CHRONIC R KNEE PAIN TECHNIQUE: 2 views of the knee were acquired. COMPARISON: [facility], CR, XR KNEE STANDING BI, 06/07/2024, 16:18. FINDINGS: Bones: No fractures or dislocations. No suspicious bony lesions. Tricompartmental joint space narrowing with associated osteophytosis. Soft tissues: Small joint effusion. No suspicious soft tissue calcifications. IMPRESSION: [id number] tricompartmental osteoarthritis. Kellgren-Ted Grade 2. Dictated by: Bryant Kumar M.D. on 06/08/2024 at 14:14 Approved by: Bryant Kumar M.D. on 06/08/2024 at 14:14
--- NOTE | 2024-06-07 16:20 | DI.RAD.S_ITS ---
PROCEDURE: XR KNEE STANDING BI INDICATIONS: CHRONIC R KNEE PAIN TECHNIQUE: 1 views of the knee(s) COMPARISON: None. FINDINGS: Bones: No acute fractures or dislocations. Patellar alignment is normal on the sunrise view. No suspicious bony lesions. Tibiofemoral joint space narrowing with osteophytosis. Soft tissues: No suspicious soft tissue calcification. IMPRESSION: [id number]-[id number] bicompartmental osteoarthritis. Kellgren-Ted Grade 2. Dictated by: Bryant Kumar M.D. on 06/08/2024 at 14:15 Approved by: Bryant Kumar M.D. on 06/08/2024 at 14:16
== END ==
PROVIDERS: Family Provider Family Medicine; PCP Family Medicine; Referring Provider Family Medicine; Visit Provider Family Medicine
DX: M25.561 Pain in right knee (principal); G89.29 Other chronic pain; M17.11 Unilateral primary osteoarthritis, right knee
CPT/HCPCS: 73560; 73565